=== PATIENT | female | born 1945 | race Caucasian/White ===

== ENCOUNTER 2016-07-02 09:05 | Outpatient (CLI) | payer MEDICARE, OTHER | END 2016-07-02 09:06 | disposition home or self-care (01) | DX: R73.9 Hyperglycemia, unspecified (principal); Z13.1 Encounter for screening for diabetes mellitus; Z13.21 Encounter for screening for nutritional disorder; Z13.220 Encounter for screening for lipoid disorders ==

== ENCOUNTER 2017-06-13 11:55 | Emergency (ER) | payer MEDICARE, OTHER ==
[2017-06-13 12:33] LABS: BASOPHILS % (AUTO) 0.6 %; EOSINOPHILS % (AUTO) 1.2 %; HGB - HEMOGLOBIN 12.2 g/dL (12.0-16.0); LYMPHOCYTES # (AUTO) 0.5 10^3/uL (1.5-3.5); LYMPHOCYTES % (AUTO) 12.6 %; MEAN CORPUSCULAR HEMOGLOBIN 26.6 pg (27.0-31.0); MEAN CORPUSCULAR VOLUME 78.3 fL (81.0-99.0); MEAN PLATELET VOLUME 6.6 fL (7.9-10.8); MONOCYTES # (AUTO) 0.3 10^3/uL (0.0-1.0); MONOCYTES % (AUTO) 6.1 %; NEUTROPHILS # (AUTO) 3.4 10^3/uL (1.5-6.6); NEUTROPHILS % (AUTO) 79.5 %; PLT - PLATELET COUNT 127 10^3/uL (130-450); RED CELL DISTRIBUTION WIDTH 14.5 % (12.0-15.0); WHITE BLOOD COUNT 4.3 x10^3/uL (4.8-10.8)
[2017-06-13 12:47] LABS: BILIRUBIN,TOTAL 0.7 mg/dL (0.2-1.0); CALCIUM 9.7 mg/dL (8.5-10.3); CREATININE 0.5 mg/dL (0.4-1.0); TOTAL PROTEIN 7.5 g/dL (6.7-8.2)
--- NOTE | 2017-06-13 13:08 | XRAY Preliminary Report ---
Exam: XR CHEST 2 VIEW X-RAY IMPRESSION: 1. Congestive heart failure. [facility] SITE ID: [id number]
--- NOTE | 2017-06-13 13:09 | XRAY Report ---
EXAM: CHEST RADIOGRAPHY EXAM DATE: 06/13/2017 12:47 PM. CLINICAL HISTORY: Shortness of breath, chest heaviness. Elevated blood pressure. COMPARISON: 05/18/2015. TECHNIQUE: 2 views. FINDINGS: Lungs/Pleura: Pulmonary vascular congestion. No pneumothorax or pleural effusion. Mediastinum: Cardiomegaly. Other: Lower neck surgical clips. Gallbladder fossa surgical clips. IMPRESSION: 1. Congestive heart failure. [facility] Referring Provider Line: [phone] SITE ID: [id number]
[2017-06-13] MEDS ORDERED: FUROSEMIDE 20 MG/2 ML VIAL IVP STA (13:22)
--- NOTE | 2017-06-13 13:22 | ED Physician Documentation ---
History of Present Illness - Stated complaint Stated Complaint: HIGH BP - Chief complaint Chief Complaint: Cardiac - History obtained from History obtained from: Patient - Additonal information Additional information: The patient is a 72-year-old female who has history of hypertension and aortic stenosis, and who presents complaining of high blood pressure. She has noticed high blood pressure for about 2 weeks, as high as 218/111 today. She reports epigastric "heaviness," but denies chest pain, shortness of breath, nausea or vomiting. She denies history of similar symptoms in the past. 2 weeks ago she stopped taking hydrochlorothiazide, and has been taking only lisinopril for her hypertension. Her reason for stopping hydrochlorothiazide was that she is trying to get off of his many medications as possible. Review of Systems Constitutional: denies: Fever Ears: denies: Tinnitus/ringing Nose: denies: Congestion Throat: denies: Sore throat Cardiac: denies: Chest pain / pressure Respiratory: denies: Dyspnea, Cough GI: reports: Abdominal Pain (Epigastric "heaviness."). 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, Hysterectomy, Other - Present Medications Home Medications: Ambulatory Orders Medication Instructions Recorded Confirmed Aspirin [Adult Low Dose Aspirin EC] 162 mg PO DAILY 04/23/15 05/18/15 Hydrochlorothiazide 25 mg PO DAILY 04/23/15 05/18/15 Lisinopril 40 mg PO DAILY 04/23/15 05/18/15 metFORMIN [Glucophage] 500 mg PO BID 04/23/15 05/18/15 - Allergies Allergies/Adverse Reactions: Allergies Allergy/AdvReac Type Severity Reaction Status Date / Time Sulfa (Sulfonamide Allergy Rash Verified 06/13/17 12:02 Antibiotics) - Social History Does the pt smoke?: No Smoking Status: Never smoker Does the pt drink ETOH?: No Does the pt have substance abuse?: No - Immunizations Immunizations are current?: Yes - POLST Patient has POLST: No PD ED PE NORMAL - Vitals Vital signs reviewed: Yes (hypertensive, at 184/65.) - General General: Alert and oriented X 3, Well developed/nourished - HEENT HEENT: Atraumatic, Moist mucous membranes, Pharynx benign - Neck Neck: No adenopathy, No JVD - Cardiac Cardiac: RRR, Other (3/6 systolic murmur.) - Respiratory Respiratory: No respiratory distress, Clear bilaterally - Abdomen Abdomen: Soft, Non tender - Back Back: No CVA TTP - Derm Derm: No rash - Extremities Extremities: No edema, No calf tenderness / cord - Neuro Neuro: Alert and oriented X 3, No motor deficit, No sensory deficit Results - Vitals Vitals: Oxygen O2 Source Room air - EKG (time done) 12:07 Rate: Rate (enter#) (59) Rhythm: NSR [place]: Normal Intervals: Normal PA QRS: Normal Ischemia: Normal ST segments Computer interpretation: Agree with computer - Labs Labs: Laboratory Tests 06/13/17 06/13/17 06/13/17 12:20 12:20 12:20 WBC 4.3 L RBC 4.60 Hgb 12.2 Hct 36.0 L MCV 78.3 L MCH 26.6 L MCHC 34.0 RDW 14.5 Plt Count 127 L MPV 6.6 L Neut # 3.4 Lymph # 0.5 L [place] # 0.3 Eos # 0.0 Baso # 0.0 Absolute Nucleated RBC 0.00 Nucleated RBC % 0.0 Sodium 137 Potassium 3.6 Chloride 101 Carbon Dioxide 27 Anion Gap 9.0 BUN 20 Creatinine 0.5 Estimated GFR (MDRD) 122 Glucose 123 H Calcium 9.7 Total Bilirubin 0.7 AST 18 ALT 21 Alkaline Phosphatase 50 Troponin I < 0.04 B-Natriuretic Peptide Total Protein 7.5 Albumin 5.0 Globulin 2.5 Albumin/Globulin Ratio 2.0 Lipase 16 L Urine Color Urine Clarity Urine pH Ur Specific [place] Urine Protein Urine Glucose (UA) Urine Ketones Urine Occult Blood Urine Nitrite Urine Bilirubin Urine Urobilinogen Ur Leukocyte Esterase Urine RBC Urine WBC Ur Squamous Epith Cells Urine Bacteria Urine Mucus Ur Microscopic Review Urine Culture Comments 06/13/17 06/13/17 12:20 13:36 WBC RBC Hgb Hct MCV MCH MCHC RDW Plt Count MPV Neut # Lymph # [place] # Eos # Baso # Absolute Nucleated RBC Nucleated RBC % Sodium Potassium Chloride Carbon Dioxide Anion Gap BUN Creatinine Estimated GFR (MDRD) Glucose Calcium Total Bilirubin AST ALT Alkaline Phosphatase Troponin I B-Natriuretic Peptide 317 H Total Protein Albumin Globulin Albumin/Globulin Ratio Lipase Urine Color YELLOW Urine Clarity CLEAR Urine pH 5.5 Ur Specific [place] 1.015 Urine Protein NEGATIVE Urine Glucose (UA) NEGATIVE Urine Ketones NEGATIVE Urine Occult Blood MODERATE H Urine Nitrite NEGATIVE Urine Bilirubin NEGATIVE Urine Urobilinogen 0.2 (NORMAL) Ur Leukocyte Esterase SMALL H Urine RBC 6-10 H Urine WBC 4-5 Ur Squamous Epith Cells MOD Squamous H Urine Bacteria Rare Urine Mucus Few Strands Ur Microscopic Review INDICATED Urine Culture Comments NOT INDICATED - Rads (name of study) 2-view CXR Radiology: Prelim report reviewed, EMP read contemporaneously, See rad report ( Congestive heart failure.) PD MEDICAL DECISION MAKING - ED course Complexity details: reviewed results, re-evaluated patient, considered differential, d/w patient ED course: The patient's presentation is most consistent with mild congestive heart failure. Having stopped her hydrochlorothiazide 2 weeks ago, that is the most likely inciting event. Her presentation does not suggest cardiac angina or pulmonary embolus. CBC is normal, as are BUN/creatinine. Troponin is normal. BNP is mildly elevated at 317. Chest x-ray revealed pulmonary vascular congestion consistent with congestive heart failure. Treatment in the emergency department included administration of Lasix 10 mg IV. The patient subsequently diuresed, and her symptoms totally resolved. I discussed with her the importance of resuming hydrochlorothiazide, to which she agrees. I discussed with her the importance of outpatient follow-up, as well as potentially worrisome signs or symptoms that should prompt reevaluation in the emergency department. Departure - Departure Disposition: 01 Home, Self Care Clinical Impression: Congestive heart failure Qualifiers: Congestive heart failure type: systolic Congestive heart failure chronicity: acute Qualified Code(s): I50.21 - Acute systolic (congestive) heart failure Hypertension Qualifiers: Hypertension type: unspecified secondary hypertension Qualified Code(s): I15.9 - Secondary hypertension, unspecified Aortic stenosis Qualifiers: Cardiac valve disease etiology: etiology unspecified Qualified Code(s): I35.0 - Nonrheumatic aortic (valve) stenosis Condition: Stable Instructions: ED CHF Left Side Follow-Up: Fredy Hagen MD [Primary Care Provider] - Casimiro Webster MD [Provider Admit Priv/Credential] - Comments: The patient's presentation is most consistent with mild congestive heart failure associated with having discontinued hydrochlorothiazide 2 weeks ago. She has a history of aortic stenosis, and I suspect that is an underlying exacerbating cause for her symptoms. Her presentation does not suggest myocardial infarction, and her electrocardiogram reveals no ischemic abnormalities and her troponin is normal. Treatment in the emergency department included administration of Lasix 10 mg IV. At the time of discharge she feels subjectively improved, and her blood pressure is improved. I discussed with her the results of her workup, the importance of continuing therapy with hydrochlorothiazide as well as her other previously prescribed medications, outpatient follow-up, as well as potentially worrisome signs or symptoms that should prompt reevaluation in the emergency department. Discharge Date/Time: 06/13/17 14:51
[2017-06-13 13:43] LABS: BILIRUBIN,URINE NEGATIVE (NEGATIVE); GLUCOSE, URINE (UA) NEGATIVE (NEGATIVE); KETONES,URINE (UA) NEGATIVE (NEGATIVE); LEUKOCYTE ESTERASE, URINE SMALL (NEGATIVE); NITRITE,URINE NEGATIVE (NEGATIVE); OCCULT BLOOD,URINE MODERATE (NEGATIVE); PH,URINE 5.5 PH (5.0-7.5); PROTEIN,URINE NEGATIVE (NEGATIVE); UROBILINOGEN,URINE 0.2 (NORMAL) E.U./dL (NORMAL)
[2017-06-13 13:44] LABS: CLARITY,URINE CLEAR (CLEAR)
[2017-06-13 13:51] LABS: BACTERIA,URINE Rare /HPF (None Seen); MUCUS,URINE Few Strands; SQUAMOUS EPITHELIAL CELL,UR MOD Squamous (<= Few)
[2017-06-13 14:34] VITALS: BP 167/63
== END 2017-06-13 14:51 | disposition home or self-care (01) ==
LOC: ED 11:55
DX: I11.0 Hypertensive heart disease with heart failure (principal); I50.21 Acute systolic (congestive) heart failure; I35.0 Nonrheumatic aortic (valve) stenosis; E11.9 Type 2 diabetes mellitus without complications; Z79.84 Long term (current) use of oral hypoglycemic drugs; Z79.82 Long term (current) use of aspirin
CPT/HCPCS: 36415; 71046; 80053; 81001; 81003; 83690; 83880; 84484; 85025; 87086; 93005; 96374; 99284

== ENCOUNTER 2018-06-27 08:33 | Outpatient (CLI) | payer MEDICARE, OTHER ==
--- NOTE | 2018-06-29 12:27 | Mammography Report ---
Reason: ENCOUNTER FOR SCREENING MAMMOGRAM FOR MALIGNANT NE Procedure Date: 06/27/2018 Accession Number: [id number] / [id number] Procedure: KANNAN - Screening Mammo w/Andriy CPT Code: FULL RESULT: EXAM: Screening Mammo w/Andriy DATE: 06/27/2018 9:06 AM CLINICAL HISTORY: Screening encounter. History of early menses. TECHNIQUE: (B) - Bilateral CC, laterally exaggerated CC, MLO views were obtained. COMPARISON: 06/01/2014 through 04/09/2013. PARENCHYMAL PATTERN: (D) - The breast(s) demonstrate(s) heterogeneously dense fibroglandular parenchyma. FINDINGS: There are coarse typically benign calcifications. There are no suspicious masses, calcifications, or areas of distortion. IMPRESSION: Benign findings. BI-RADS category 2. RECOMMENDATION: (ANNUAL) - Recommend routine annual screening mammography. BI-RADS CATEGORY: (2) - Benign Findings. STANDARD QUALIFYING STATEMENTS: 1. This examination was not reviewed with the aid of Computer-Aided Detection (CAD). 2. A negative or benign imaging report should not preclude biopsy if clinically suspicious findings are present. 3. Dense breasts may obscure an underlying neoplasm. 4. This examination was reviewed with the aid of 3D breast imaging (tomosynthesis).
== END 2018-06-27 08:34 | disposition home or self-care (01) ==
LOC: DI 08:33
PROVIDERS: ATTEND Family Medicine
DX: Z12.31 Encounter for screening mammogram for malignant neoplasm of breast (principal)
CPT/HCPCS: 77063; 77067

== ENCOUNTER 2018-07-12 08:57 | Outpatient (CLI) | payer MEDICARE, OTHER | END 2018-07-12 08:58 | disposition home or self-care (01) | LOC: DI 08:57 | PROVIDERS: ATTEND Internal Medicine Cardiovascular Disease | DX: I35.0 Nonrheumatic aortic (valve) stenosis (principal); I27.20 Pulmonary hypertension, unspecified; I51.9 Heart disease, unspecified; I51.7 Cardiomegaly | CPT/HCPCS: 93306 ==

== ENCOUNTER 2019-03-10 11:56 | Emergency (ER) | payer MEDICARE, OTHER ==
[2019-03-10] MEDS ORDERED: PROCAINAMIDE 1,000 MG in SODIUM CHLORIDE 0.9% 240 ML IV STA (12:26)
[2019-03-10] MEDS ORDERED: METOPROLOL 5 MG/5 ML VIAL IVP STA (12:26)
--- NOTE | 2019-03-10 12:28 | ED Physician Documentation ---
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 No history of coronary disease or atrial fibrillation. She denies increased pedal edema although on examination she does have some, and although she says she had not noticed that her says it is atypical.) Review of Systems Ten Systems: 10 systems reviewed and negative Constitutional: denies: Fever, Chills Throat: denies: Sore throat Cardiac: reports: Chest pain / pressure, Palpitations. denies: Pedal edema, Calf pain Respiratory: reports: Dyspnea. 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, Hysterectomy, Other - Present Medications Home Medications: Ambulatory Orders Medication Instructions Recorded Confirmed Aspirin [Adult Low Dose Aspirin EC] 162 mg PO DAILY 04/23/15 05/18/15 Hydrochlorothiazide 25 mg PO DAILY 04/23/15 05/18/15 lisinopriL [Lisinopril] 40 mg PO DAILY 04/23/15 05/18/15 metFORMIN [Glucophage] 500 mg PO BID 04/23/15 05/18/15 predniSONE [Prednisone] 100 mg PO DAILY PRN 02/22/19 02/22/19 - Allergies Allergies/Adverse Reactions: Allergies Allergy/AdvReac Type Severity Reaction Status Date / Time Sulfa (Sulfonamide Allergy Rash Verified 06/13/17 12:02 Antibiotics) - Social History Does the pt smoke?: No Smoking Status: Never smoker Does the pt drink ETOH?: No Does the pt have substance abuse?: No - Immunizations Immunizations are current?: Yes - POLST Patient has POLST: No PD ED PE NORMAL - Vitals Vital signs reviewed: Yes - General General: Alert and oriented X 3, No acute distress - HEENT HEENT: PERRL, EOMI - Neck Neck: Supple, no meningeal sign, No bony TTP - Cardiac Cardiac: Other (Rapid and irregular, she says she has a history of aortic stenosis but with the rapidity I do not appreciate a murmur) - Respiratory Respiratory: Other (Mildly diminished at the bases) - Abdomen Abdomen: Non tender - Back Back: No CVA TTP, No spinal TTP - Derm Derm: Normal color, Warm and dry - Extremities Extremities: No calf tenderness / cord, Other (1+ symmetric pitting pedal edema) - Neuro Neuro: Alert and oriented X 3, Normal speech Results - Vitals Vitals: Vital Signs - 24 hr 03/10/19 03/10/19 03/10/19 12:01 12:49 13:00 Temperature 36.8 C Heart Rate 127 H 126 H 118 H Respiratory 18 23 19 Rate Blood Pressure 150/105 H 149/96 H 160/133 H O2 Saturation 100 97 97 03/10/19 03/10/19 03/10/19 13:14 13:30 14:00 Temperature Heart Rate 121 H 92 104 H Respiratory 22 18 21 Rate Blood Pressure 121/81 H 119/96 H 132/104 H O2 Saturation 97 95 96 03/10/19 03/10/19 03/10/19 14:30 15:00 15:43 Temperature Heart Rate 89 104 H 118 H Respiratory 20 17 18 Rate Blood Pressure 92/74 120/88 H 165/118 H O2 Saturation 97 97 98 03/10/19 03/10/19 15:47 15:50 Temperature Heart Rate 52 L 57 L Respiratory 18 22 Rate Blood Pressure 77/63 L 108/64 O2 Saturation 96 97 Oxygen O2 Source Nasal cannula - EKG (time done) 1212 Rate: Rate (enter#) (136) Rhythm: Atrial fibrillation [place]: Normal Ischemia: Non specific changes. No: ST elevation c/w ischemia, ST depression Computer interpretation: Agree with computer 1555 Rate: Rate (enter#) (56) Rhythm: NSR [place]: Normal Intervals: Prolonged [place] Ischemia: Non specific changes (prob d/t proparacaine). No: ST elevation c/w ischemia, ST depression Computer interpretation: Agree with computer - Labs Labs: Laboratory Tests 03/10/19 03/10/19 03/10/19 13:15 13:15 13:15 WBC 6.7 RBC 3.57 L Hgb 10.3 L Hct 32.3 L MCV 90.5 MCH 28.9 MCHC 31.9 L RDW 18.1 H Plt Count 319 MPV 10.8 Neut # (Auto) 4.4 Lymph # (Auto) 1.2 L [place] # (Auto) 0.8 Eos # (Auto) 0.1 Baso # (Auto) 0.1 Absolute Nucleated RBC 0.02 Nucleated RBC % 0.3 Sodium 135 Potassium 3.9 Chloride 99 L Carbon Dioxide 25 Anion Gap 11.0 BUN 18 Creatinine 0.7 Estimated GFR (MDRD) 82 L Glucose 220 H Calcium 9.9 Total Bilirubin 0.3 AST 29 ALT 25 Alkaline Phosphatase 76 Troponin I High Sens B-Natriuretic Peptide 687 H Total Protein 6.7 Albumin 3.9 Globulin 2.8 Albumin/Globulin Ratio 1.4 Lipase 34 03/10/19 03/10/19 13:15 15:18 WBC RBC Hgb Hct MCV MCH MCHC RDW Plt Count MPV Neut # (Auto) Lymph # (Auto) [place] # (Auto) Eos # (Auto) Baso # (Auto) Absolute Nucleated RBC Nucleated RBC % Sodium Potassium Chloride Carbon Dioxide Anion Gap BUN Creatinine Estimated GFR (MDRD) Glucose Calcium Total Bilirubin AST ALT Alkaline Phosphatase Troponin I High Sens 57.7 H* 57.8 H* B-Natriuretic Peptide Total Protein Albumin Globulin Albumin/Globulin Ratio Lipase - Rads (name of study) 1v chest Radiology: EMP read contemporaneously (Unchanged central bronchial wall thickening, interstitial prominence, mild pulmonary edema not excluded, right midlung nodular density, stable cardiomegaly) Procedures - Procedural sedation Sedation prep: Informed consent, AHA 3 - severe disease Sedation medications: propofol (70mg IVP x1) Patient status during sedation: Responds to tactile, Vitals remained stable, Maintained airway, Recovered uneventfully Sedation recovery: Recovered uneventfully Time in sedation (Minutes): 15 - Cardioversion 1 Time of attempt: 15:50 Indication: Other (symptomatic afib) Risks, benefits, alternatives explained to: Pt Prep: IV, O2, monitoring tech, Pulse ox, Airway equip CS via: Pads, AP approach Sync: 100j Post cardioversion rhythm: NSR Complications: No: Contact burn, Apnea, Hypotension Performed by: ED MD JURADO MEDICAL DECISION MAKING - ED course Complexity details: reviewed old records (Echocardiogram from earlier this year in June reviewed, EF was 60%, moderate diastolic disjunction, left atrium dilation, mild aortic stenosis, moderate pulmonary hypertension.) ED course: 73-year-old woman presents with symptomatic and new atrial fibrillation. After divided doses of IV beta-fawad and diltiazem she was rate controlled, and she got a procainamide drip which did not result in rhythm control. After discussion she wanted to go ahead with electrical cardioversion which was successful on the first shock. Mildly elevated troponin but no delta change after 2 hours. Departure - Departure Disposition: 01 Home, Self Care Clinical Impression: Atrial fibrillation with RVR Condition: Good Record reviewed to determine appropriate education?: Yes Instructions: Atrial Fibrillation Dc Comments: You do have a small right mid lung nodule, no urgency to it but your doctor should order a noncontrast chest CT for better evaluation. Do not drive today. Take it easy the rest of the day. 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 Return if worse. Continue current medications.
--- NOTE | 2019-03-10 12:32 | XRAY Report ---
Reason: chest pressure Procedure Date: 03/10/2019 Accession Number: [id number] / [id number] Procedure: XR - Chest 1 View X-Ray CPT Code: 70925 Final Report FULL RESULT: EXAM: CHEST RADIOGRAPHY EXAM DATE: 03/10/2019 12:22 PM. CLINICAL HISTORY: Chest pressure. COMPARISON: CHEST 2 VIEW 06/13/2017 12:45 PM. TECHNIQUE: 1 view. FINDINGS: Lungs/Pleura: Lung volumes are low, decreased compared to prior. Unchanged central bronchial wall thickening seen bilaterally with associated interstitial prominence. No new focal consolidation. Indeterminate 5 mm nodular density projects over the right midlung. No pneumothorax. Mediastinum: Stable heart size and mediastinum. Other: Chest port catheter terminates in the mid SVC. IMPRESSION: 1. Unchanged central bronchial wall thickening which could reflect reactive airways or bronchitis. 2. Interstitial prominence could reflect vascular congestion or possibly interstitial pulmonary edema. No focal consolidation. 3. Indeterminate nodular density projecting over the right midlung is of unclear etiology. Nonemergent chest CT could be obtained for evaluation. 4. Stable cardiomegaly. [facility]
[2019-03-10] MEDS ORDERED: diltiaZEM INJ 5 MG/ML VIAL IVP STA ×2 (13:14→14:15)
[2019-03-10 13:34] LABS: BASOPHILS # (AUTO) 0.1 10^3/uL (0.0-0.1); BASOPHILS % (AUTO) 1.4 %; EOSINOPHILS # (AUTO) 0.1 10^3/uL (0.0-0.7); EOSINOPHILS % (AUTO) 1.8 %; HGB - HEMOGLOBIN 10.3 g/dL (12.0-16.0); LYMPHOCYTES # (AUTO) 1.2 10^3/uL (1.5-3.5); LYMPHOCYTES % (AUTO) 17.4 %; MEAN CORPUSCULAR HEMOGLOBIN 28.9 pg (27.0-31.0); MEAN CORPUSCULAR HGB CONC 31.9 g/dL (32.0-36.0); MEAN CORPUSCULAR VOLUME 90.5 fL (81.0-99.0); MEAN PLATELET VOLUME 10.8 fL (7.9-10.8); MONOCYTES # (AUTO) 0.8 10^3/uL (0.0-1.0); MONOCYTES % (AUTO) 11.3 %; NEUTROPHILS # (AUTO) 4.4 10^3/uL (1.5-6.6); NEUTROPHILS % (AUTO) 65.4 %; PLT - PLATELET COUNT 319 10^3/uL (130-450); RED BLOOD COUNT 3.57 10^6/uL (4.20-5.40); RED CELL DISTRIBUTION WIDTH 18.1 % (12.0-15.0); WHITE BLOOD COUNT 6.7 x10^3/uL (4.8-10.8)
[2019-03-10 13:54] LABS: ALBUMIN 3.9 g/dL (3.2-5.5); ALBUMIN/GLOBULIN RATIO 1.4 (1.0-2.2); BILIRUBIN,TOTAL 0.3 mg/dL (0.2-1.0); CALCIUM 9.9 mg/dL (8.5-10.3); CREATININE 0.7 mg/dL (0.4-1.0); TOTAL PROTEIN 6.7 g/dL (6.7-8.2)
[2019-03-10] MEDS ORDERED: PROPOFOL 200 MG/20 ML VIAL IVP STA (15:24)
[2019-03-10 16:36] VITALS: BP 116/60
== END 2019-03-10 16:36 | disposition home or self-care (01) ==
LOC: ED 11:56
DX: I48.91 Unspecified atrial fibrillation (principal); I35.0 Nonrheumatic aortic (valve) stenosis; R91.1 Solitary pulmonary nodule; C85.90 Non-Hodgkin lymphoma, unspecified, unspecified site; Z86.718 Personal history of other venous thrombosis and embolism; Z79.01 Long term (current) use of anticoagulants; Z79.82 Long term (current) use of aspirin; I10 Essential (primary) hypertension; E11.9 Type 2 diabetes mellitus without complications; Z79.84 Long term (current) use of oral hypoglycemic drugs
CPT/HCPCS: 36415; 71045; 80053; 83690; 83880; 84484; 85025; 92960; 93005; 96365; 96366; 96375; 96376; 99152; 99284; 99285; J2690; 94770

== ENCOUNTER 2019-03-12 11:00 | Emergency (ER) | payer MEDICARE, OTHER ==
--- NOTE | 2019-03-12 11:49 | ED Physician Documentation ---
History of Present Illness - Stated complaint Stated Complaint: SOA - Chief complaint Chief Complaint: Cardiac - Additonal information Additional information: This is a 73-year-old female with a history of non-Hodgkin's lymphoma, reportedly in remission, on chemotherapy, mild aortic stenosis, recent atrial fibrillation, who presents with an episode of shortness of breath last night and some chest heaviness today. Patient states that she was in the emergency department recently and diagnosed with a first episode of atrial fibrillation, she was cardioverted and sent home. She reports she had an elevated troponin which was stable on a repeat level. Last night she had an episode where she felt short of breath, and this morning she had chest heaviness. Her breathing now feels fine and she has not had any fever. She has an intermittent cough, but no change from baseline. No abdominal pain over her baseline mild discomfort from semi-recent abdominal surgery. She does have a history of blood clots, and she is on Eliquis for this. She has been taking this faithfully. 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, Hysterectomy, Other - Present Medications Home Medications: Ambulatory Orders Medication Instructions Recorded Confirmed metFORMIN [Glucophage] 500 mg PO BID 04/23/15 05/18/15 predniSONE [Prednisone] 100 mg PO DAILY PRN 02/22/19 02/22/19 Apixaban [Eliquis] 5 mg PO BID 03/12/19 03/12/19 Metoprolol Tartrate 50 mg PO DAILY 03/12/19 03/12/19 - Allergies Allergies/Adverse Reactions: Allergies Allergy/AdvReac Type Severity Reaction Status Date / Time Sulfa (Sulfonamide Allergy Rash Verified 03/12/19 11:18 Antibiotics) - Social History Does the pt smoke?: No Smoking Status: Never smoker Does the pt drink ETOH?: No Does the pt have substance abuse?: No - Immunizations Immunizations are current?: Yes - POLST Patient has POLST: No PD ED PE NORMAL - Vitals Vital signs reviewed: Yes - General General: Alert and oriented X 3, No acute distress - HEENT HEENT: PERRL - Neck Neck: Supple, no meningeal sign - Cardiac Cardiac: RRR, Other (2 out of 6 systolic ejection murmur) - Respiratory Respiratory: No respiratory distress, Clear bilaterally - Abdomen Abdomen: Soft, Non tender, Non distended, Other (Well-healed surgical incisions) - Derm Derm: Warm and dry - Extremities Extremities: No deformity, Other (Trace pitting edema in the bilateral lower extremities) - Neuro Neuro: Alert and oriented X 3 - Psych Psych: Normal mood, Normal affect Results - Vitals Vitals: Vital Signs - 24 hr 03/12/19 17:14 Temperature 37 C Heart Rate 93 Respiratory 20 Rate Blood Pressure 167/77 H O2 Saturation 95 Oxygen O2 Source Room air - EKG (time done) 11;14 Other comments: Other comments (Rate 85, rhythm sinus, there is no ST segment elevation or depression, no T wave inversions in V3. Intervals within normal limits.) 14:28 Other comments: Other comments (Rate 75, rhythm sinus, there is no ST segment elevation or depression, there to inversions in V3, intervals within normal limits. No significant change from prior) - Labs Labs: Laboratory Tests 03/12/19 03/12/19 03/12/19 11:45 11:45 11:45 WBC 7.1 RBC 3.56 L Hgb 10.5 L Hct 32.7 L MCV 91.9 MCH 29.5 MCHC 32.1 RDW 18.2 H Plt Count 495 H MPV 9.8 Neut # (Auto) 4.4 Lymph # (Auto) 1.3 L [place] # (Auto) 1.0 Eos # (Auto) 0.2 Baso # (Auto) 0.1 Absolute Nucleated RBC 0.00 Nucleated RBC % 0.0 PT 13.6 H INR 1.2 Sodium 135 Potassium 3.6 Chloride 99 L Carbon Dioxide 27 Anion Gap 9.0 BUN 13 Creatinine 0.7 Estimated GFR (MDRD) 82 L Glucose 240 H Calcium 9.5 Total Bilirubin 0.3 AST 23 ALT 23 Alkaline Phosphatase 80 Troponin I High Sens B-Natriuretic Peptide Total Protein 6.6 L Albumin 4.0 Globulin 2.6 Albumin/Globulin Ratio 1.5 Lipase 34 03/12/19 03/12/19 03/12/19 11:45 11:45 13:51 WBC RBC Hgb Hct MCV MCH MCHC RDW Plt Count MPV Neut # (Auto) Lymph # (Auto) [place] # (Auto) Eos # (Auto) Baso # (Auto) Absolute Nucleated RBC Nucleated RBC % PT INR Sodium Potassium Chloride Carbon Dioxide Anion Gap BUN Creatinine Estimated GFR (MDRD) Glucose Calcium Total Bilirubin AST ALT Alkaline Phosphatase Troponin I High Sens 75.1 H* 90.5 H* B-Natriuretic Peptide 1191 H Total Protein Albumin Globulin Albumin/Globulin Ratio Lipase - Rads (name of study) CXR Radiology: Other (Cardiomegaly with no other acute pulmonary abnormality) PD MEDICAL DECISION MAKING - ED course ED course: Patient presents with chest heaviness and an episode of shortness of breath last night. On examination she is well-appearing with clear lungs, x-ray shows no acute cardiopulmonary abnormality, she does have cardiomegaly. Her EKGs show T wave inversion in V3, no ST segment changes. Her CBC shows a stable anemia, no leukocytosis, she does not have infectious symptoms on exam. Her HS troponin is elevated at 75 which is increased from 57 on the 25th, and additionally a 2- hour delta troponin comes back further elevated at 98.5. Her BNP is also up at 1200, just 2 days ago it was 687. She continues to have some mild chest hea viness but no chest pain. She is well-appearing on reexamination. She appears to have worsening HF, though ACS is also possible given her symptoms and uptrending troponin. She techinically has an NSTEMI, I did not start heparin on her since she is on Eliquis and has been taking this. Pulmonary embolism was considered, however patient has no signs of DVT, and she does not have any pleuritic chest pain, oxygen saturation is normal, and she is on eliquis. I think PE is much less likely especially given her description of the pain. Given her uptrending troponins and the fact that we do not have cardiology or echocardiogram available at our facility, She will be transferred to [facility]. Dr. Perez accepted. Pt is in agreement with the plan. She is well appearing and asymptomatic at the time of transfer. Departure - Departure Disposition: 02 Transfer Acute Care Hosp Clinical Impression: Elevated troponin Heart failure Qualifiers: Heart failure type: unspecified Heart failure chronicity: unspecified Qualified Code(s): I50.9 - Heart failure, unspecified Condition: Good Discharge Date/Time: 03/12/19 17:45
[2019-03-12 12:20] LABS: BASOPHILS # (AUTO) 0.1 10^3/uL (0.0-0.1); BASOPHILS % (AUTO) 1.5 %; EOSINOPHILS # (AUTO) 0.2 10^3/uL (0.0-0.7); EOSINOPHILS % (AUTO) 2.1 %; HGB - HEMOGLOBIN 10.5 g/dL (12.0-16.0); LYMPHOCYTES # (AUTO) 1.3 10^3/uL (1.5-3.5); LYMPHOCYTES % (AUTO) 18.2 %; MEAN CORPUSCULAR HEMOGLOBIN 29.5 pg (27.0-31.0); MEAN CORPUSCULAR HGB CONC 32.1 g/dL (32.0-36.0); MEAN CORPUSCULAR VOLUME 91.9 fL (81.0-99.0); MEAN PLATELET VOLUME 9.8 fL (7.9-10.8); MONOCYTES % (AUTO) 14.3 %; NEUTROPHILS # (AUTO) 4.4 10^3/uL (1.5-6.6); NEUTROPHILS % (AUTO) 61.8 %; PLT - PLATELET COUNT 495 10^3/uL (130-450); RED BLOOD COUNT 3.56 10^6/uL (4.20-5.40); RED CELL DISTRIBUTION WIDTH 18.2 % (12.0-15.0); WHITE BLOOD COUNT 7.1 x10^3/uL (4.8-10.8)
[2019-03-12 12:28] LABS: INR 1.2 (0.8-1.2); PT - PROTHROMBIN TIME 13.6 secs (9.9-12.6)
[2019-03-12 12:30] LABS: ALBUMIN/GLOBULIN RATIO 1.5 (1.0-2.2); BILIRUBIN,TOTAL 0.3 mg/dL (0.2-1.0); CALCIUM 9.5 mg/dL (8.5-10.3); CREATININE 0.7 mg/dL (0.4-1.0); TOTAL PROTEIN 6.6 g/dL (6.7-8.2)
--- NOTE | 2019-03-12 12:53 | XRAY Report ---
Reason: Chest heaviness, SOB Procedure Date: 03/12/2019 Accession Number: [id number] / [id number] Procedure: XR - Chest 2 View X-Ray CPT Code: 86993 Final Report FULL RESULT: EXAM: CHEST RADIOGRAPHY EXAM DATE: 03/12/2019 12:46 PM. CLINICAL HISTORY: Chest heaviness, shortness of breath. COMPARISON: CHEST 1 VIEW 03/10/2019 12:06 PM. TECHNIQUE: 2 views. FINDINGS: Lungs/Pleura: No focal opacities evident. No pleural effusion. No pneumothorax. Normal volumes. Mediastinum: Stable mild cardiomegaly when accounting for differences in technique. Other: Left-sided central venous port with tip in the SVC appears unchanged. Surgical clips are seen in the left neck. IMPRESSION: Redemonstration of cardiomegaly with no superimposed acute cardiopulmonary abnormality. RADIA
[2019-03-12 17:16] VITALS: BP 167/77
== END 2019-03-12 17:45 | disposition short-term general hospital (02) ==
LOC: ED 11:00
DX: R79.89 Other specified abnormal findings of blood chemistry (principal); I11.0 Hypertensive heart disease with heart failure; I21.4 Non-ST elevation (NSTEMI) myocardial infarction; E11.9 Type 2 diabetes mellitus without complications; Z79.84 Long term (current) use of oral hypoglycemic drugs
CPT/HCPCS: 36415; 71046; 80053; 83690; 83880; 84484; 85025; 85610; 93005; 99284; 99285

== ENCOUNTER 2019-03-12 17:43 | Outpatient (CLI) | payer MEDICARE, OTHER | END 2019-03-12 17:44 | disposition short-term general hospital (02) | LOC: EMS 17:43 | PROVIDERS: ATTEND Surgery | DX: R79.89 Other specified abnormal findings of blood chemistry (principal); I50.9 Heart failure, unspecified; R51 Headache; R06.02 Shortness of breath; R07.9 Chest pain, unspecified | CPT/HCPCS: A0425; A0428 ==

== ENCOUNTER 2019-03-31 09:11 | Outpatient (CLI) | payer MEDICARE, OTHER | END 2019-03-31 09:12 | disposition home or self-care (01) | LOC: DI 09:11 | PROVIDERS: ATTEND Internal Medicine Cardiovascular Disease | DX: I42.9 Cardiomyopathy, unspecified (principal); I48.0 Paroxysmal atrial fibrillation; I35.0 Nonrheumatic aortic (valve) stenosis; I51.7 Cardiomegaly | CPT/HCPCS: 93306 ==

== ENCOUNTER 2019-04-20 13:14 | Outpatient (CLI) | payer MEDICARE, OTHER ==
--- NOTE | 2019-04-21 02:17 | XRAY Report ---
Reason: M79.89 OTHER SOFT TISSUE DISORDERS Procedure Date: 04/20/2019 Accession Number: [id number] / [id number] Procedure: XRS - Foot 2 View RT CPT Code: Final Report FULL RESULT: EXAM: RIGHT FOOT RADIOGRAPHY EXAM DATE: 04/20/2019 01:44 PM. CLINICAL HISTORY: M79. 89 OTHER SOFT TISSUE DISORDERS. Right foot pain and swelling COMPARISON: None. TECHNIQUE: 2 views. FINDINGS: Bones: Normal. No fractures or bone lesions. Joints: Mild osteoarthritis of the first metatarsophalangeal joint and interphalangeal joints. Soft Tissues: Soft tissue swelling. No radiopaque foreign body. IMPRESSION: Soft tissue swelling, but no evidence of fracture or radiopaque foreign body. Mild degenerative changes. RADIA
== END 2019-04-20 13:15 | disposition home or self-care (01) ==
LOC: DI.S 13:14
PROVIDERS: ATTEND Nurse Practitioner Family
DX: M79.89 Other specified soft tissue disorders (principal); M19.071 Primary osteoarthritis, right ankle and foot

== ENCOUNTER 2019-05-06 14:47 | Emergency (ER) | payer MEDICARE, OTHER ==
[2019-05-06] MEDS ORDERED: diltiaZEM INJ 5 MG/ML VIAL IVP STA (15:08)
--- NOTE | 2019-05-06 15:09 | ED Physician Documentation ---
History of Present Illness - Stated complaint Stated Complaint: AFIB - Chief complaint Chief Complaint: Cardiac - History obtained from History obtained from: Patient - History of Present Illness Timing: Today Pain level max: 0 Pain level now: 0 - Additonal information Additional information: 73-year-old female with a history of paroxysmal atrial fibrillation and heart failure. Her last EF was approximately 50%. [place] [facility] [place] and noted that her heart rate was above 100. They sent her here to have her heart rate better controlled. She is asymptomatic here. No shortness of breath. No chest pain. No nausea. No vomiting. No abdominal pain. Nothing makes it better or worse. 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 : None HEENT: None Psych: None Musculoskeletal: None Derm: None - Past Surgical History Past Surgical History: Yes General: 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, Hysterectomy, Other - Present Medications Home Medications: Ambulatory Orders Medication Instructions Recorded Confirmed metFORMIN [Glucophage] 500 mg PO DAILY 04/23/15 05/05/19 predniSONE [Prednisone] 100 mg PO DAILY PRN 02/22/19 05/05/19 Apixaban [Eliquis] 5 mg PO BID 03/12/19 05/05/19 Metoprolol Tartrate 50 mg PO DAILY 03/12/19 05/05/19 Furosemide [Lasix] 20 mg PO DAILY 03/16/19 05/05/19 cephALEXin [Cephalexin] 500 mg PO QID 04/26/19 05/05/19 - Allergies Allergies/Adverse Reactions: Allergies Allergy/AdvReac Type Severity Reaction Status Date / Time Sulfa (Sulfonamide Allergy Rash Verified 05/06/19 15:05 Antibiotics) - Social History Does the pt smoke?: No Smoking Status: Never smoker Does the pt drink ETOH?: No Does the pt have substance abuse?: No - Immunizations Immunizations are current?: Yes - POLST Patient has POLST: No PD ED PE NORMAL - Vitals Vital signs reviewed: Yes - General General: Alert and oriented X 3, No acute distress, Well developed/nourished - HEENT HEENT: PERRL, Moist mucous membranes - Neck Neck: Supple, no meningeal sign - Cardiac Cardiac: Strong equal pulses, Other (Irregular, tachycardic) - Respiratory Respiratory: No respiratory distress, Clear bilaterally - Abdomen Abdomen: Soft, Non tender, Non distended - Derm Derm: Warm and dry - Extremities Extremities: No edema - Neuro Neuro: Alert and oriented X 3 - Psych Psych: Normal mood, Normal affect Results - Vitals Vitals: Vital Signs - 24 hr 05/06/19 05/06/19 05/06/19 15:00 15:15 15:20 Temperature 36.6 C Heart Rate 125 H 125 H 127 H Respiratory 16 18 20 Rate Blood Pressure 143/106 H 142/112 H 135/103 H O2 Saturation 98 97 97 05/06/19 15:25 Temperature Heart Rate 85 Respiratory 18 Rate Blood Pressure 117/71 O2 Saturation 96 Oxygen O2 Source Room air - EKG (time done) 1503 Rate: Rate (enter#) (128) Rhythm: Atrial fibrillation (RVR) Webb: Normal QRS: Normal Ischemia: Normal ST segments PD MEDICAL DECISION MAKING - ED course Complexity details: considered differential, d/w patient, d/w family ED course: Patient with atrial fibrillation with rapid ventricular response. Administered diltiazem 20 mg IV. Heart rate controlled. She is going to go back [place] [facility] [place]. She will return if she worsens. Patient counseled regarding signs and symptoms for which I believe and urgent re-evaluation would be necessary. Patient with good understanding of and agreement to plan and is comfortable going home at this time This document was made in part using voice recognition software. While efforts are made to proofread this document, sound alike and grammatical errors may occur. Departure - Departure Disposition: 01 Home, Self Care Clinical Impression: Atrial fibrillation with rapid ventricular response Condition: Good Instructions: ED Afib Follow-Up: Fredy Hagen MD [Primary Care Provider] - Comments: Follow-up with your doctor for further care. Return if you worsen.
[2019-05-06 15:56] VITALS: BP 131/75
[2019-05-06] MEDS ORDERED: SODIUM CHLORIDE 0.9% 250 ML IV ONE (16:07)
== END 2019-05-06 15:40 | disposition home or self-care (01) ==
LOC: ED 14:47
DX: I48.91 Unspecified atrial fibrillation (principal); I10 Essential (primary) hypertension; E11.9 Type 2 diabetes mellitus without complications; Z79.01 Long term (current) use of anticoagulants; Z79.84 Long term (current) use of oral hypoglycemic drugs
CPT/HCPCS: 93005; 96374; 99284

== ENCOUNTER 2019-05-08 06:46 | Emergency (ER) | payer MEDICARE, OTHER ==
[2019-05-08] MEDS ORDERED: diltiaZEM INJ 5 MG/ML VIAL IVP STA ×2 (07:30→12:03)
[2019-05-08] MEDS ORDERED: FUROSEMIDE 40 MG/4 ML VIAL IVP STA (07:30)
--- NOTE | 2019-05-08 07:33 | ED Physician Documentation ---
PD HPI CHEST PAIN - Stated complaint Stated Complaint: SOA/SENT BY - Chief complaint Chief Complaint: Cardiac - History obtained from History obtained from: Patient, Family - History of Present Illness Timing - onset: Yesterday Timing - onset during: Rest Timing - duration: Hours Timing - details: Gradual onset, Still present Quality: Pressure, Indigestion Location: Substernal, Left chest Radiation: Neck Improved by: Rest Worsened by: Exertion Associated symptoms: Shortness of air Similar symptoms before: Diagnosis (CHF afib) Recently seen: Other - Additional information Additional information: 73-year-old female with a history of atrial fibrillation with rapid ventricular response who is undergoing treatment for non-Hodgkin's B-cell lymphoma has developed shortness of breath and rapid heart rate with some chest pressure. She has had this previously she did have some relief with the use of diltiazem here in the emergency department 2 days ago. She has had her last round of chemo yesterday. She is in remission. She does have a prior history of congestive heart failure associated with atrial fibrillation with a hospitalization in February of last year. She has received doxyrubicin. She is previously had cardioversion and she is on Eliquis. She reports a 6lb weight gain 2 days ago. Review of Systems Constitutional: denies: Fever Eyes: denies: Decreased vision Ears: denies: Ear pain Nose: denies: Rhinorrhea / runny nose, Congestion Throat: denies: Sore throat Cardiac: reports: Chest pain / pressure, Palpitations. denies: Pedal edema, Calf pain Respiratory: reports: Dyspnea. 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, Hysterectomy, Other - Present Medications Home Medications: Ambulatory Orders Medication Instructions Recorded Confirmed metFORMIN [Glucophage] 500 mg PO DAILY 04/23/15 05/05/19 predniSONE [Prednisone] 100 mg PO DAILY PRN 02/22/19 05/05/19 Apixaban [Eliquis] 5 mg PO BID 03/12/19 05/05/19 Metoprolol Tartrate 50 mg PO DAILY 03/12/19 05/05/19 Furosemide [Lasix] 20 mg PO DAILY 03/16/19 05/05/19 cephALEXin [Cephalexin] 500 mg PO QID 04/26/19 05/05/19 Furosemide [Lasix] 40 mg PO DAILY #20 tablet 05/08/19 Potassium Chloride 10 meq PO DAILY #20 tablet.er 05/08/19 - Allergies Allergies/Adverse Reactions: Allergies Allergy/AdvReac Type Severity Reaction Status Date / Time Sulfa (Sulfonamide Allergy Rash Verified 05/08/19 07:14 Antibiotics) - Social History Does the pt smoke?: No Smoking Status: Never smoker Does the pt drink ETOH?: No Does the pt have substance abuse?: No - Immunizations Immunizations are current?: Yes - POLST Patient has POLST: No PD ED PE NORMAL - Vitals Vital signs reviewed: Yes (tachy and hypertensive ) - General General: Alert and oriented X 3, No acute distress, Well developed/nourished - HEENT HEENT: Atraumatic, PERRL, EOMI - Neck Neck: Supple, no meningeal sign, No bony TTP - Cardiac Cardiac: Other (Tachycardic with irregularly irregular rate and rhythm without murmur) - Respiratory Respiratory: No respiratory distress, Other (Diminished breath sounds in the bases) - Abdomen Abdomen: Soft, Non tender - Back Back: No CVA TTP, No spinal TTP - Derm Derm: Normal color, Warm and dry, No rash - Extremities Extremities: No deformity, No edema - Neuro Neuro: Alert and oriented X 3, 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 2-12 intact, No motor deficit, No sensory deficit, Normal speech Eye Opening: Spontaneous Motor: Obeys Commands Verbal: Oriented GCS Score: 15 - Psych Psych: Normal mood, Normal affect Results - Vitals Vitals: Vital Signs - 24 hr 05/08/19 05/08/19 05/08/19 06:54 08:17 08:22 Temperature 36.6 C Heart Rate 139 H 135 H 102 H Respiratory 16 16 Rate Blood Pressure 154/110 H 136/92 H 128/80 O2 Saturation 97 96 05/08/19 05/08/19 05/08/19 08:25 08:30 08:37 Temperature Heart Rate 81 97 97 Respiratory Rate Blood Pressure 123/83 H 139/93 H 145/104 H O2 Saturation 05/08/19 12:57 Temperature Heart Rate 86 Respiratory 19 Rate Blood Pressure 119/70 O2 Saturation 96 Oxygen O2 Source Room air - EKG (time done) 0659 Rate: Rate (enter#) (137) Rhythm: Atrial fibrillation Compare to prior EKG: Unchanged from prior EKG (SPT 05-06-2019 no significant change) Computer interpretation: Agree with computer - Labs Labs: Laboratory Tests 05/08/19 05/08/19 05/08/19 09:40 09:40 09:40 WBC 9.9 RBC 4.04 L Hgb 11.9 L Hct 36.9 L MCV 91.3 MCH 29.5 MCHC 32.2 RDW 14.0 Plt Count 425 MPV 10.1 Neut # (Auto) 9.1 H Lymph # (Auto) 0.6 L [place] # (Auto) 0.1 Eos # (Auto) 0.0 Baso # (Auto) 0.0 Absolute Nucleated RBC 0.00 Nucleated RBC % 0.0 Sodium 137 Potassium 3.8 Chloride 93 L Carbon Dioxide 29 Anion Gap 15.0 H BUN 28 H Creatinine 0.7 Estimated GFR (MDRD) 82 L Glucose 290 H Calcium 10.1 Total Bilirubin 0.6 AST 46 H ALT 77 H Alkaline Phosphatase 77 Troponin I High Sens 117.2 H* Total Protein 7.3 Albumin 4.4 Globulin 2.9 Albumin/Globulin Ratio 1.5 Lipase 29 05/08/19 12:05 WBC RBC Hgb Hct MCV MCH MCHC RDW Plt Count MPV Neut # (Auto) Lymph # (Auto) [place] # (Auto) Eos # (Auto) Baso # (Auto) Absolute Nucleated RBC Nucleated RBC % Sodium Potassium Chloride Carbon Dioxide Anion Gap BUN Creatinine Estimated GFR (MDRD) Glucose Calcium Total Bilirubin AST ALT Alkaline Phosphatase Troponin I High Sens 107.6 H* Total Protein Albumin Globulin Albumin/Globulin Ratio Lipase - Rads (name of study) chest Radiology: Prelim report reviewed (Impression: Increasing pulmonary vascular congestion with small left-sided pleural effusion. Findings may represent CHF exacerbation; however, Superimposed infectious process not excluded.), EMP read indepedently, See rad report Procedures - IVC sono (time) 0730 Bedside IVC sono: IVC measures (cm) (2.52), IVC collapsed c insp (cm) (2.52), High CVP, Fluid overload PD MEDICAL DECISION MAKING - ED course Complexity details: reviewed old records, reviewed results, re-evaluated patient, considered differential, d/w patient, d/w family ED course: 73-year-old female undergoing chemo for non-Hodgkin's B-cell lymphoma with doxorubicin has developed congestive heart failure with atrial fibrillation with rapid ventricular response. She is arrives to the emergency department with a heart rate of 140 and diastolic of greater than 110. She is found to be volume overloaded on interrogation the inferior vena cava and she is administered diltiazem 20 mg intravenously for rate control and 40 mg of Lasix intravenously for diuresis. Departure - Departure Disposition: Home, Self Care Clinical Impression: Atrial fibrillation with RVR, Elevated troponin Congestive heart failure Qualifiers: Heart failure type: unspecified Heart failure chronicity: acute on chronic Qualified Code(s): I50.9 - Heart failure, unspecified Condition: Stable Instructions: ED Afib, ED CHF General Follow-Up: Fredy Hagen MD [Primary Care Provider] - Prescriptions: Furosemide [Lasix] 40 mg PO DAILY #20 tablet Potassium Chloride 10 meq PO DAILY #20 tablet.er Comments: Today it appears that you have retained some fluid and have some congestive heart failure associated with this. In order to get the rest of this fluid out you will need to take some Lasix for the next 5 days. Anytime you are taking Lasix take some additional potassium. My recommendation today is to weigh yourself when you get home and weigh yourself daily at the same time every day. Eventually you will get your dry weight. You will then be able to use that #2 determine when to take additional Lasix. Follow-up with Dr. Webster this week. We are expecting you to continue to improve and, if you have worsening of your symptoms, return to the hospital immediately.
--- NOTE | 2019-05-08 07:36 | XRAY Report ---
Reason: Chest pain Procedure Date: 05/08/2019 Accession Number: [id number] / [id number] Procedure: XR - Chest 1 View X-Ray CPT Code: 17740 Final Report FULL RESULT: EXAM: CHEST RADIOGRAPHY EXAM DATE: 05/08/2019 07:19 AM. CLINICAL HISTORY: Chest pain. COMPARISON: CHEST 2 VIEW 03/12/2019 12:31 PM. TECHNIQUE: 1 view. FINDINGS: Lungs/Pleura: Small left-sided pleural effusion. Increasing pulmonary vascular congestion. Lorna B-lines on the right. Mediastinum: Within exam limitations, the cardiomediastinal contour is normal. Other: Left sided Port-A-Cath. IMPRESSION: Increasing pulmonary vascular congestion with small left-sided pleural effusion. Findings may represent CHF exacerbation; however, superimposed infectious process not excluded. RADIA
[2019-05-08 09:58] LABS: BASOPHILS % (AUTO) 0.3 %; HGB - HEMOGLOBIN 11.9 g/dL (12.0-16.0); LYMPHOCYTES # (AUTO) 0.6 10^3/uL (1.5-3.5); LYMPHOCYTES % (AUTO) 6.2 %; MEAN CORPUSCULAR HEMOGLOBIN 29.5 pg (27.0-31.0); MEAN CORPUSCULAR HGB CONC 32.2 g/dL (32.0-36.0); MEAN CORPUSCULAR VOLUME 91.3 fL (81.0-99.0); MEAN PLATELET VOLUME 10.1 fL (7.9-10.8); MONOCYTES # (AUTO) 0.1 10^3/uL (0.0-1.0); MONOCYTES % (AUTO) 1.2 %; NEUTROPHILS # (AUTO) 9.1 10^3/uL (1.5-6.6); NEUTROPHILS % (AUTO) 92.1 %; PLT - PLATELET COUNT 425 10^3/uL (130-450); RED BLOOD COUNT 4.04 10^6/uL (4.20-5.40); WHITE BLOOD COUNT 9.9 x10^3/uL (4.8-10.8)
[2019-05-08 10:11] LABS: ALBUMIN 4.4 g/dL (3.2-5.5); ALBUMIN/GLOBULIN RATIO 1.5 (1.0-2.2); BILIRUBIN,TOTAL 0.6 mg/dL (0.2-1.0); CALCIUM 10.1 mg/dL (8.5-10.3); CREATININE 0.7 mg/dL (0.4-1.0); TOTAL PROTEIN 7.3 g/dL (6.7-8.2)
[2019-05-08 12:57] VITALS: BP 119/70
== END 2019-05-08 13:19 | disposition home or self-care (01) ==
LOC: ED 06:46
DX: I11.0 Hypertensive heart disease with heart failure (principal); I50.9 Heart failure, unspecified; I48.91 Unspecified atrial fibrillation; R79.89 Other specified abnormal findings of blood chemistry; E11.9 Type 2 diabetes mellitus without complications; Z79.01 Long term (current) use of anticoagulants; Z79.84 Long term (current) use of oral hypoglycemic drugs
CPT/HCPCS: 36415; 71045; 80053; 83690; 84484; 85025; 93005; 96374; 96375; 96376; 99284

== ENCOUNTER 2019-05-27 02:38 | Outpatient (CLI) | payer MEDICARE, OTHER | END 2019-05-27 02:39 | disposition critical access hospital (66) | LOC: EMS 02:38 | PROVIDERS: ATTEND Surgery | DX: R09.89 Other specified symptoms and signs involving the circulatory and respiratory systems (principal) | CPT/HCPCS: A0425; A0429 ==

== ENCOUNTER 2019-05-27 03:02 | Observation (INO) | payer MEDICARE, OTHER ==
--- NOTE | 2019-05-27 03:05 | ED Physician Documentation ---
History of Present Illness - Stated complaint Stated Complaint: A-FIB - History obtained from History obtained from: Patient (Patient is a 73-year-old female who presents via EMS with a chief complaint of rapid heartbeat and shortness of breath she has a known history of atrial fibrillation with rapid ventricular response on Eliquis 5 mg daily she recently completed chemotherapy for non-Hodgkin's B-cell lymphoma. she does report a history of hypercoagulability. She denies any hemoptysis today. she denies lower extremity edema but reports orthopnea.) Review of Systems Constitutional: reports: Reviewed and negative Eyes: reports: Reviewed and negative Ears: reports: Reviewed and negative Nose: reports: Reviewed and negative Throat: reports: Reviewed and negative Cardiac: reports: Palpitations Respiratory: reports: Reviewed and negative GI: reports: Reviewed and negative : reports: Reviewed and negative Skin: reports: Reviewed and negative Musculoskeletal: reports: Reviewed and negative Neurologic: reports: Reviewed and negative Psychiatric: reports: Reviewed and negative Endocrine: reports: Reviewed and negative Immunocompromised: reports: Reviewed and negative PD PAST MEDICAL HISTORY - Past Medical History Cardiovascular: Hypertension, Valve disorder Respiratory: None Neuro: None Endocrine/Autoimmune: Type 2 diabetes GI: None INTERACTIVE MEDIA DESIGNER: None : None HEENT: None Psych: None Musculoskeletal: None Derm: None - Past Surgical History Past Surgical History: Yes General: Cholecystectomy /INTERACTIVE MEDIA DESIGNER: section, Hysterectomy, Other - Present Medications Home Medications: Ambulatory Orders Medication Instructions Recorded Confirmed metFORMIN [Glucophage] 500 mg PO BID 04/23/15 05/27/19 Apixaban [Eliquis] 5 mg PO BID 03/12/19 05/27/19 Metoprolol Tartrate 50 mg PO DAILY 03/12/19 05/27/19 Furosemide [Lasix] 40 mg PO DAILY #20 tablet 05/08/19 05/27/19 Multivitamin/Iron/Folic Acid 1 applic PO DAILY 05/27/19 05/27/19 [Centrum Adults Tablet] Potassium Gluconate 99 mg PO DAILY 05/27/19 05/27/19 Vit B6/Me-Thfolate/Me-B12/Ala 100 mg pe PO DAILY 05/27/19 05/27/19 [Nufola Capsule] lisinopriL [Lisinopril] 10 mg PO DAILY 05/27/19 05/27/19 - Allergies Allergies/Adverse Reactions: Allergies Allergy/AdvReac Type Severity Reaction Status Date / Time Sulfa (Sulfonamide Allergy Rash Verified 05/27/19 03:13 Antibiotics) - Social History Does the pt smoke?: No Smoking Status: Never smoker Does the pt drink ETOH?: No Does the pt have substance abuse?: No - Immunizations Immunizations are current?: Yes - POLST Patient has POLST: No PD ED PE NORMAL - Vitals Vital signs reviewed: Yes - General General: Alert and oriented X 3, No acute distress - HEENT HEENT: Atraumatic, PERRL, Ears normal, Pharynx benign - Neck Neck: Supple, no meningeal sign, No JVD - Cardiac Cardiac: Strong equal pulses, Other (Tachycardic and irregularly irregular) - Respiratory Respiratory: No respiratory distress, Clear bilaterally - Abdomen Abdomen: Normal bowel sounds, Soft, Non tender, Non distended, No organomegaly - Female Female : Deferred - Rectal Rectal: Deferred - Back Back: No CVA TTP, No spinal TTP - Derm Derm: Warm and dry - Extremities Extremities: No deformity, No tenderness to palpate, Normal ROM s pain, No edema, No calf tenderness / cord - Neuro Neuro: Alert and oriented X 3, chief radiologic technologist 2-12 intact, No motor deficit, No sensory deficit, Normal speech, Other - Psych Psych: Normal mood, Normal affect Results - Vitals Vitals: Vital Signs - 24 hr 05/27/19 05/27/19 05/27/19 03:10 03:26 03:28 Temperature 37.3 C Heart Rate 137 H 138 H 108 H Respiratory 17 17 17 Rate Blood Pressure 155/107 H 124/78 O2 Saturation 97 96 95 05/27/19 05/27/19 05/27/19 03:35 03:45 03:56 Temperature Heart Rate 110 H 109 H 112 H Respiratory 17 16 17 Rate Blood Pressure 134/91 H O2 Saturation 96 96 96 05/27/19 05/27/19 05/27/19 04:05 04:11 04:35 Temperature Heart Rate 110 H 99 99 Respiratory 19 15 17 Rate Blood Pressure 138/109 H 137/92 H O2 Saturation 96 98 99 05/27/19 05/27/19 05/27/19 04:57 05:13 05:32 Temperature Heart Rate 99 107 H 110 H Respiratory 16 17 17 Rate Blood Pressure 139/84 H 141/92 H O2 Saturation 97 97 98 05/27/19 06:02 Temperature Heart Rate 115 H Respiratory 16 Rate Blood Pressure 123/97 H O2 Saturation 97 Oxygen O2 Source Nasal cannula Oxygen Flow Rate 2 - EKG (time done) 03:04 Rate: Other (No STEMI, atrial fibrillation with rapid ventricular rate) 03:56 Rate: Other (no stemi, afib w rvr.) - Labs Labs: Laboratory Tests 05/27/19 05/27/19 05/27/19 03:20 03:20 03:20 WBC 8.3 RBC 3.79 L Hgb 11.5 L Hct 35.8 L MCV 94.5 MCH 30.3 MCHC 32.1 RDW 14.5 Plt Count 431 MPV 9.5 Neut # (Auto) 5.2 Lymph # (Auto) 1.7 [place] # (Auto) 1.0 Eos # (Auto) 0.2 Baso # (Auto) 0.1 Absolute Nucleated RBC 0.00 Nucleated RBC % 0.0 PT 12.1 INR 1.1 APTT 36.8 H Sodium 136 Potassium 3.6 Chloride 101 Carbon Dioxide 24 Anion Gap 11.0 BUN 27 H Creatinine 0.8 Estimated GFR (MDRD) 71 L Glucose 228 H Calcium 9.2 Total Bilirubin 0.7 AST 26 ALT 35 Alkaline Phosphatase 65 Total Creatine Kinase 39 Troponin I High Sens B-Natriuretic Peptide Total Protein 6.5 L Albumin 4.1 Globulin 2.4 Albumin/Globulin Ratio 1.7 Lipase 28 TSH 05/27/19 05/27/19 05/27/19 03:20 03:20 03:20 WBC RBC Hgb Hct MCV MCH MCHC RDW Plt Count MPV Neut # (Auto) Lymph # (Auto) [place] # (Auto) Eos # (Auto) Baso # (Auto) Absolute Nucleated RBC Nucleated RBC % PT INR APTT Sodium Potassium Chloride Carbon Dioxide Anion Gap BUN Creatinine Estimated GFR (MDRD) Glucose Calcium Total Bilirubin AST ALT Alkaline Phosphatase Total Creatine Kinase Troponin I High Sens 62.8 H* B-Natriuretic Peptide 488 H Total Protein Albumin Globulin Albumin/Globulin Ratio Lipase TSH 2.52 05/27/19 05:25 WBC RBC Hgb Hct MCV MCH MCHC RDW Plt Count MPV Neut # (Auto) Lymph # (Auto) [place] # (Auto) Eos # (Auto) Baso # (Auto) Absolute Nucleated RBC Nucleated RBC % PT INR APTT Sodium Potassium Chloride Carbon Dioxide Anion Gap BUN Creatinine Estimated GFR (MDRD) Glucose Calcium Total Bilirubin AST ALT Alkaline Phosphatase Total Creatine Kinase Troponin I High Sens 64.3 H* B-Natriuretic Peptide Total Protein Albumin Globulin Albumin/Globulin Ratio Lipase TSH PD MEDICAL DECISION MAKING - ED course Complexity details: re-evaluated patient (patient troponin is similar to initial troponin, she continues to remain in a fib rvr, case d/w hospitalist dr. sue, patient will be admitted here for a fib rvr and elevated troponin. patient and family updated and are agreeable to plan.), considered differential (Acute decompensated congestive heart failure, Recurrent atrial fibrillation with rapid ventricular response. ), other (Patient does have an elevated troponin, her previous troponins were reviewed, she is has what appears to be chronically elevated troponins. She is denying chest pain currently but does report some associated shortness of breath. Plan is to repeat her troponin in 2 hours as well as EKG and consult the hospitalist for admission.) - Consults Consults: Discussed case with (dr sue, hospitalist, will admit. ) - Critical Care Time(min): 74 Time Includes: Direct patient care, Review records, Reassess patient, Document care, Coordinate care, Medical consult Data interpretation: Labs, Pulse ox, CXR, Prior EKG Procedures included in critical care time: Peripheral IV Procedures excluded from critical care time: EKG Departure - Departure Disposition: 66 [facility] DC/Xfer Clinical Impression: Atrial fibrillation with rapid ventricular response, Elevated troponin Condition: Fair
[2019-05-27] MEDS ORDERED: diltiaZEM INJ 5 MG/ML VIAL IVP STA ×2 (03:16→03:58)
[2019-05-27] MEDS ORDERED: SODIUM CHLORIDE 0.9% 1,000 ML IV ONE (03:16)
[2019-05-27] MEDS ORDERED: diltiaZEM INJ 125 MG in DEXTROSE 5% 100 ML IV STA (03:21)
[2019-05-27 03:28] LABS: BASOPHILS # (AUTO) 0.1 10^3/uL (0.0-0.1); BASOPHILS % (AUTO) 1.7 %; EOSINOPHILS # (AUTO) 0.2 10^3/uL (0.0-0.7); EOSINOPHILS % (AUTO) 2.1 %; HGB - HEMOGLOBIN 11.5 g/dL (12.0-16.0); LYMPHOCYTES # (AUTO) 1.7 10^3/uL (1.5-3.5); LYMPHOCYTES % (AUTO) 20.2 %; MEAN CORPUSCULAR HEMOGLOBIN 30.3 pg (27.0-31.0); MEAN CORPUSCULAR HGB CONC 32.1 g/dL (32.0-36.0); MEAN CORPUSCULAR VOLUME 94.5 fL (81.0-99.0); MEAN PLATELET VOLUME 9.5 fL (7.9-10.8); MONOCYTES % (AUTO) 12.2 %; NEUTROPHILS # (AUTO) 5.2 10^3/uL (1.5-6.6); NEUTROPHILS % (AUTO) 63.2 %; PLT - PLATELET COUNT 431 10^3/uL (130-450); RED BLOOD COUNT 3.79 10^6/uL (4.20-5.40); RED CELL DISTRIBUTION WIDTH 14.5 % (12.0-15.0); WHITE BLOOD COUNT 8.3 x10^3/uL (4.8-10.8)
[2019-05-27 03:32] LABS: INR 1.1 (0.8-1.2); PT - PROTHROMBIN TIME 12.1 secs (9.9-12.6)
[2019-05-27] MEDS ORDERED: diltiaZEM INJ 5 MG/ML VIAL ONE (03:34)
[2019-05-27 03:39] LABS: PARTIAL THROMBOPLASTIN TIME 36.8 secs (24.9-33.3)
[2019-05-27 03:42] LABS: ALBUMIN 4.1 g/dL (3.2-5.5); ALBUMIN/GLOBULIN RATIO 1.7 (1.0-2.2); BILIRUBIN,TOTAL 0.7 mg/dL (0.2-1.0); CALCIUM 9.2 mg/dL (8.5-10.3); CREATININE 0.8 mg/dL (0.4-1.0); TOTAL PROTEIN 6.5 g/dL (6.7-8.2)
--- NOTE | 2019-05-27 03:43 | XRAY Report ---
Reason: SOB Procedure Date: 05/27/2019 Accession Number: [id number] / [id number] Procedure: XR - Chest 1 View X-Ray CPT Code: 18076 Final Report FULL RESULT: EXAM: CHEST RADIOGRAPHY EXAM DATE: 05/27/2019 03:34 AM CLINICAL HISTORY: SOB. COMPARISON: CHEST 1 VIEW 05/08/2019 7:05 AM. TECHNIQUE: 1 view. FINDINGS: Lungs/Pleura: Mild interstitial and airspace opacities throughout both lungs. No pleural effusion. No pneumothorax. Mediastinum: Mild cardiomegaly. Other: Pravin catheter tip located in the region of the junction of the SVC and right atrium. Postsurgical changes at the base of the neck. IMPRESSION: Interstitial and airspace opacities throughout both lungs, which may reflect mild pulmonary edema or a diffuse inflammation/infection. RADIA
[2019-05-27] MEDS ORDERED: ONDANSETRON 4 MG/2 ML VIAL IVP PRN (06:14)
[2019-05-27] MEDS ORDERED: ACETAMINOPHEN 325 MG TABLET PO PRN (06:14)
[2019-05-27] MEDS ORDERED: SODIUM CHLORIDE FLUSH 0.9% 10 ML SYRINGE IVP PRN (06:14)
[2019-05-27] MEDS ORDERED: METOPROLOL 5 MG/5 ML VIAL IVP STA (06:16)
[2019-05-27] MEDS ORDERED: POTASSIUM CHLORIDE 20 MEQ TABLET PO SCH (07:11)
[2019-05-27] MEDS: SODIUM CHLORIDE FLUSH 0.9% 10 ML SYRINGE IVP SCH ×2 (08:14→16:59)
[2019-05-27] MEDS: INSULIN ASPART 300 UNIT/3 ML PEN SUBQ SCH ×3 (08:15→16:56)
[2019-05-27] MEDS ORDERED: APIXABAN 5 MG TABLET PO SCH (09:00)
[2019-05-27] MEDS ORDERED: METOPROLOL TARTRATE 50 MG TABLET PO SCH (09:00)
[2019-05-27 10:08] LABS: BILIRUBIN,URINE NEGATIVE (NEGATIVE); CLARITY,URINE CLEAR (CLEAR); GLUCOSE, URINE (UA) NEGATIVE (NEGATIVE); KETONES,URINE (UA) NEGATIVE (NEGATIVE); LEUKOCYTE ESTERASE, URINE NEGATIVE (NEGATIVE); NITRITE,URINE NEGATIVE (NEGATIVE); OCCULT BLOOD,URINE NEGATIVE (NEGATIVE); PH,URINE 5.5 PH (5.0-7.5); PROTEIN,URINE TRACE mg/dL (NEGATIVE); UROBILINOGEN,URINE 0.2 (NORMAL) E.U./dL (NORMAL)
--- NOTE | 2019-05-27 12:33 | HISTORY & PHYSICAL EXAMINATION ---
DATE OF SERVICE: 05/27/2019 Physician: Suzy Hinkle MD HISTORY OF PRESENT ILLNESS: This is a 73-year-old white female with a history of atrial fibrillation, hypertension, diabetes, lymphoma. She was found to have masses in the abdomen and chest in 2019 when she was visiting relatives in [place] and ended up being hospitalized for 4 months for findings of clots, lymphoma, which was diagnosed as non-Hodgkin B-cell lymphoma. She required a splenectomy and also IVC filter, which has subsequently been removed. She returned back to [facility] and continued treatment of her non-Hodgkin's lymphoma at the [facility] here. She states that in February of 2019, her body scan showed that she was completely clear of lymphoma in the abdomen and chest. Over the past year, mostly when getting chemotherapy, she had developed paroxysmal atrial fibrillation with rapid ventricular response. She has had several visits to the ER for heart rate control. She is being followed by Dr. Casimiro Webster. Patient states that he has been planning on doing stress testing but was waiting for the cancer to be in remission. She has had Echos in the past, and 1 year ago she had an Echo here showing normal LVEF. Two months ago, she had an Echo, which showed a small decrease of ejection fraction to 45%. She now has more frequent episodes of paroxysms of atrial fibrillation and can feel these as rapid palpitations. They also give her lower chest pressure and shortness of breath. Patient presents with an episode of her typical palpitations that kept her up all night, associated with lower chest and epigastric pressure and mild dyspnea. She came into the emergency room and was found to be in atrial fibrillation with rapid ventricular response of 150, received IV heart rate slowing medications but the rate is still elevated at 110-120, thus she is being placed in Observation for further management. ALLERGIES: SULFA. MEDICATIONS 1. Multivitamin daily. 2. Potassium gluconate 99 mg daily. 3. Lisinopril 10 mg daily. 4. Eliquis 5 mg b.i.d. 5. Metoprolol tartrate 50 mg daily. 6. Lasix 40 mg daily. 7. Metformin 500 mg b.i.d. FAMILY HISTORY: No cardiac history in the family. SOCIAL HISTORY: Patient is a nonsmoker, drinks no alcohol. No illicit drug use history. REVIEW OF SYSTEMS: Patient's daughter is at her bedside and supplies a lot of the history. Patient became a diabetic as she was being treated for the non- Hodgkin's lymphoma. Patient checks her blood pressure at home. Patient has never had a stress test since here Community Engagement Manager was waiting for lymphoma to be in remission. Her next visit to Dr. Webster is in 2 weeks for a routine visit. Patient is to have an MRI to stage if the lymphoma continues to be in remission, which is pending tomorrow as an outpatient. A comprehensive review of systems was performed, and the pertinent positives are listed, and the rest are negative. PHYSICAL EXAMINATION GENERAL: White female who appears younger than her age. She has mild alopecia. VITAL SIGNS: Blood pressure 120/80, heart rate 100-115 in atrial fibrillation, afebrile, room air saturation 94%. HEENT: Revealed alopecia, moist oral mucosa. NECK: Without JVD. No carotid bruits. CHEST: Clear lung sounds. HEART: Irregular and tachycardic, but no murmur. ABDOMEN: Soft, nontender. Positive bowel sounds. EXTREMITIES: No clubbing, cyanosis, or edema. NEUROLOGIC: Grossly intact. LABORATORY DATA: Troponins 62 and 64. TSH 2.52. Normal electrolytes, BUN 27, creatinine 0.8. Normal liver tests. BNP 488. White blood count 8.3, hemoglobin 11.5, platelet count 431. Urinalysis unremarkable. EKG: Atrial fibrillation with a rapid rate of 150. Low voltage EKG and T-wave flattening present in the inferior leads. CHEST X-RAY: Possible interstitial edema and possible airspace disease. IMPRESSION AND RECOMMENDATIONS 1. Atrial fibrillation with rapid ventricular response, worsened by chemo, hyperthyroidism ruled out. 2. Foknv-sw-owgyvrj systolic heart failure. 3. Chest pain with elevated troponins; however, these are in a flat pattern. 4. History of hypertension. 5. History of cardiomyopathy. 6. Diabetes, on oral agents. 7. Lymphoma, in remission. 8. Status post splenectomy. 9. Status post inferior vena cava filter removal. PLAN: Place the patient in Observation status on telemetry. Continue with increased beta-fawad treatment for rate control and continue with her Eliquis. Since her Echo was just done 6 weeks ago, a repeat echo was not needed. Proceed to a stress test for evaluation of the chest and epigastric pressure symptoms and the elevated troponin. I would recommend adjustment in her medications with long-acting beta-fawad instead of metoprolol tartrate, but to have metoprolol tartrate as a "pill in the pocket" to use an extra dose if she gets paroxysms of rapid atrial fibrillation. Continue with her other management for blood pressure and diabetes. DEEP VENOUS THROMBOSIS PROPHYLAXIS: Pharmacotherapy with her Eliquis. CODE STATUS: FULL CODE. ATTESTATION: Patient is expected to be discharged or transferred to another facility within 96 hours: Yes. cc: MD Casimiro Ledbetter MD TD: 05/27/2019 12:09 MTDD
--- NOTE | 2019-05-27 15:39 | Discharge Plan ---
Discharge Plan Problem Reviewed?: Yes Disposition: Home, Self Care Condition: Fair Prescriptions: Metoprolol Succinate [Toprol Xl] 50 mg PO DAILY #30 tab.er.24h Diet: Diabetic (and Low salt diet) Activity Restrictions: Activity as Tolerated Shower Restrictions: No Driving Restrictions: No Weight Bearing: Full Weight Instruction Topics: Atrial Fibrillation Health Concerns: You were here in extended Observation status to manage the rapid Afib. You also underwent stress testing to evaluate the chest/upper abdominal pressure. The stress test is abnormal, suspicious for coronary artery disease. Your medications were changed. Take extended release Metoprolol Succinate 50 mg once daily in the morning, the new prescription was sent to your pharmacy electronically. Take an additional one tablet of the (old) Metoprolol Tartrate only if you get "break through" of rapid Afib, and the pulse is greater than 125. All other medications and doses should remain the same. Keep the appointment for the PET scan tomorrow. Keep the upcoming appointment to Dr Poe. Plan of Treatment: As above. You should only do light activity, no heavy lifting, no yardwork or exercise, until seen by your District Plant Supervisor. You will likely need a coronary angiogram. Care Goals: Improvement in symptoms and stabilization are the goals. Assessment: The patient and daughter understand and are agreeable with the plan. Additional Instructions or Follow Up instructions: If you have new or worsening symptoms, call your PCP or your District Plant Supervisor or come to the ER. No Smoking: If you smoke, Please STOP! Call for help. Follow-up with: Fredy Hagen MD [Primary Care Provider] -
[2019-05-27] MEDS ORDERED: METOPROLOL SUCCINATE 50 MG TABLET PO SCH ×2 (16:00→21:00)
[2019-05-27 16:52] VITALS: BP 102/77
--- NOTE | 2019-05-27 17:02 | Nuclear Medicine Report ---
Reason: Chest pain Procedure Date: 05/27/2019 Accession Number: [id number] / [id number] Procedure: NM - Myocardial Perfusion STR/RST CPT Code: Addended Final Report FULL RESULT: EXAM: SINGLE-ISOTOPE EXERCISE STRESS TEST. SINGLE-ISOTOPE AND ONE-DAY REST/STRESS MYOCARDIAL PERFUSION SCANS WITH TOMOGRAPHIC IMAGING, QUANTITATIVE ANALYSIS, WALL MOTION ANALYSIS AND CALCULATION OF EJECTION FRACTION. EXAM DATE: 05/27/2019 04:21 PM. CLINICAL HISTORY: Chest pain. COMPARISON: None available. TECHNIQUE: A rest myocardial perfusion scan was done with tomography after the intravenous administration of 10 mCi Tc-99m sestamibi. After an appropriate delay, a treadmill exercise stress was performed according to department protocol. The patient exercised for 1 minutes and 42 seconds. The maximum heart rate was 162 bpm, which was greater than 100% of the maximum predicted heart rate of 148 bpm. At approximately peak heart rate, standard dose mCi of Tc-99m sestamibi was injected for stress myocardial perfusion scan. Motion correction was applied when appropriate. The patient's resting heart rate was 121-130 bpm. Gated tomographic images were obtained for wall motion analysis and computation of left ventricular ejection fraction. FINDINGS: Images show a moderate-sized and mild to moderate severity anteroseptal wall and anterior apical perfusion defect which appears larger and more severe on the stress images compared to the rest images. Additional mild reversible perfusion defect in the lateral wall. Summed stress score 7 Summed rest score 2 Summed difference score 5 Wall motion analysis demonstrates diffuse hypokinesis, greatest in the septum. The left ventricular end-diastolic volume is 96 cc. The left ventricular end-systolic volume is 79 cc. The left ventricular ejection fraction is calculated to be 17%. IMPRESSION: 1. Moderate sized, mild to moderate severity partially fixed and partially reversible perfusion defect involving the mid to distal anteroseptal wall and anterior apex. Mild severity reversible perfusion defect in the lateral wall. 2. Abnormal left ventricular ejection fraction of 17%. 3. Diffuse hypokinesis, most focally in the septum. 4. Normal left ventricular cavity size, no change with stress. 5. Of note, the patient's resting heart rate was measured at 121-130 bpm. Please correlate findings with stress ECG tracings and procedure notes. RADIA The call report notification system was initiated by Dr. Rasta Kaplan at 04:57 PM on 05/27/2019. ADDENDUM: 05/27/19 17:02 The above call report findings were discussed with Dr. Hinkle by Dr. Rasta Kaplan at 05:02 PM on 05/27/2019.
--- NOTE | 2019-05-27 17:31 | DISCHARGE SUMMARY ---
Discharge Summary Admit Date: 05/27/19 Discharge Date: 05/27/19 Discharging Provider: Dr Suzy Hinkle Primary Care Provider: Dr El Hagen Code Status: Attempt Resuscitation Condition at Discharge: Fair Discharge Disposition: 01 Home, Self Care - DIAGNOSES Admission Diagnoses: 1. A. fib with RVR 2. Acute on chronic systolic heart failure 3. Chest pain with elevated but flat troponins 4. HTN 5. 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 Diabetes 7. Lymphoma 8. Status-post splenectomy 9. Status-post IVC filter and removal Discharge Diagnoses with Status of Each Condition: See below - HPI History of Present Illness: This is a 73-year-old white female with a history of non-Hodgkins lymphoma diagnosed 2019, diabetes, hypertension, mild cardiomyopathy probably from chemotherapy found on Echo done 6 weeks ago, atrial fib which is paroxysmal and worse when she would get chemotherapy. She is on Eliquis. Over the past 2 months she has had 2 ER visits for A. fib with RVR, received IV heart rate controlling meds and discharged. She feels palpitations when she goes into A. fib. Her final chemotherapy was 2 weeks ago, and a follow-up PET scan is sc heduled for tomorrow. Last night she went into A. fib and the palpitations "kept her up all night". She presented to the emergency room with this complaint and was found to be in A. fib with RVR, rate 150. She described mild dyspnea on exertion and admitted that whenever she has palpitations she also gets chest pressure in the lower chest and upper abdomen. She has never had a stress test; she believes that her Referral Manager has been waiting for the malignancy to be in remission before undergoing a stress test. She received IV metoprolol and rate only dropped to 110-120. Her other work-up showed hs- troponin of 62, BNP 488, TSH normal at 2.52 and chest x-ray showed CHF. She was placed in Observation on telemetry for managing her rapid heart rate and treating CHF. - HOSPITAL COURSE Hospital Course: 1. A. fib with RVR She was put on additional metoprolol orally and heart rate improved to the 90- 100s. She was also changed from metoprolol tartrate 50 mg daily to metoprolol succinate 50 mg at discharge to take daily and told to use her previous metoprolol tartrate as a "pill in the pocket", to take as an additional dose daily if her heart rate would be over 125. Her Eliquis continued. 2. Acute on chronic systolic heart failure The LVEF was normal in June 2018, then down to 45% by Echo done in March 2019. An Echo was not repeated here. She received 1 dose of IV Lasix. The plan was to continue with her home oral Lasix. She underwent a stress test (see below), and the EF by nuclear scan was lower than 20%. She was kept on her Lisinopril. Starting Spironolactone would be left up to her PCP or Referral Manager. 3. Chest pain with elevated but flat troponins The hs-troponins were 62, 64, 62. She underwent a Reji-protocol treadmill stress test with nuclear myocardial perfusion imaging. She became short of breath after 1 minute and did developed her "chest pressure". The heart rate doris to 162 in A. fib. There were no ischemic EKG changes with exercise. The nuclear scan was read as having EF less than 20% with anterior wall reversible defect plus scar, and a lateral wall reversible defect. She was advised that she will need an angiogram and advised to have light activity until an angiogram is done. Adding aspirin to her Eliquis and checking her cholesterol should be done by her PCP or Referral Manager. 4. HTN BP was running 120-150s/70s-80s with her current combination of medications. 5. 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 6. Diabetes She was on a carb controlled diet with sliding scale insulin while here; her home diabetic management was to resume after discharge. 7. Lymphoma She was discharged on the evening of the same inside contractor sales that she was admitted, in order for her to go to the PET scan appointment at [facility] the following day. Continue follow-up with her Oncologist. 8. Status-post splenectomy 9. Status-post IVC filter and removal 10. Abnormal Stress Test. As above in #3. - ALLERGIES Allergies/Adverse Reactions: Allergies Allergy/AdvReac Type Severity Reaction Status Date / Time Sulfa (Sulfonamide Allergy Rash Verified 05/27/19 03:13 Antibiotics) - MEDICATIONS Home Medications: Ambulatory Orders Medication Instructions Recorded Confirmed metFORMIN [Glucophage] 500 mg PO BID 04/23/15 05/27/19 Apixaban [Eliquis] 5 mg PO BID 03/12/19 05/27/19 Furosemide [Lasix] 40 mg PO DAILY #20 tablet 05/08/19 05/27/19 Furosemide [Lasix] 40 mg PO DAILY PRN #30 tablet 05/27/19 Metoprolol Succinate [Toprol Xl] 50 mg PO DAILY #30 tab.er.24h 05/27/19 Metoprolol Tartrate [Lopressor] 50 mg PO DAILY PRN tablet 05/27/19 Multivitamin/Iron/Folic Acid 1 applic PO DAILY 05/27/19 05/27/19 [Centrum Adults Tablet] Potassium Gluconate 99 mg PO DAILY 05/27/19 05/27/19 Vit B6/Me-Thfolate/Me-B12/Ala 100 mg pe PO DAILY 05/27/19 05/27/19 [Nufola Capsule] lisinopriL [Lisinopril] 10 mg PO DAILY 05/27/19 05/27/19 - PHYSICAL EXAM AT DISCHARGE General Appearance: positive: No acute distress, Alert Eyes Bilateral: positive: Normal inspection, EOMI ENT: positive: ENT inspection nml, No signs of dehydration Neck: positive: Nml inspection, No JVD Respiratory: positive: No respiratory distress, Other (Fine crackles R base) Cardiovascular: positive: No murmur, Irregularly irregular, Tachycardia Abdomen: positive: Non-tender, No distention Skin: positive: Color nml Extremities: positive: Non-tender, No pedal edema Neurologic/Psychiatric: positive: Oriented x3, Motor nml, Other (Non-focal) - LABS Result Diagrams: 05/27/19 03:20 05/27/19 03:20 - DIAGNOSTIC IMAGING Diagnostic Imaging Results: Final report reviewed - FOLLOW UP Follow Up: See PCP for hospital follow-up in a week. See Referral Manager at previously scheduled appointment in 2 weeks.
--- NOTE | 2019-05-27 17:46 | CARDIAC PROCEDURE NOTE ---
DATE OF SERVICE: 05/27/2019 Physician: Suzy Hinkle MD INDICATION: Chest pain. CARDIAC RISK FACTORS: Diabetes, hypertension, postmenopausal status. DESCRIPTION OF PROCEDURE: After signing informed consent, the patient underwent a Reji-protocol treadmill stress test with nuclear myocardial perfusion imaging. RESTING HEART RATE: 113-120, in atrial fibrillation. PEAK HEART RATE: 162 (109% predicted maximum heart rate for age). RESTING BLOOD PRESSURE: 131/98. PEAK BLOOD PRESSURE: 176/70. The patient exercised for 1 minute and 42 seconds on a Reji-protocol treadmill stress test. The patient reached a peak heart rate of 162 (109% PMHR) and only 3.95 METS. Her oxygen saturation remained greater than 95% on room air throughout the test. The patient developed shortness of breath quickly and developed her typical chest "pressure" after 1 minute of exercise. These symptoms resolved in approximately 2 minutes of recovery. RESTING EKG: Atrial fibrillation, vertical axis. EKG AT PEAK: No new ST segment or T-wave abnormalities. SUMMARY 1. Abnormal resting EKG. 2. No ischemic ST segment or T-wave changes developed by EKG criteria. 3. Very poor exercise tolerance. 4. Tachycardia at rest. 5. Nuclear images reported separately. 6. This patient's cardiac risk based on all the above: High. cc: MD Fredy Ramirez MD TD: 05/27/2019 17:08 MTDD
[2019-05-28] MEDS ORDERED: METOPROLOL TARTRATE 50 MG TABLET PO PRN (08:00)
== END 2019-05-27 17:40 | disposition home or self-care (01) ==
LOC: EDUNIT# → ED 03:02 → MS2 06:14
PROVIDERS: ADMIT Internal Medicine; ATTEND Internal Medicine
DX: I48.0 Paroxysmal atrial fibrillation (principal); I11.0 Hypertensive heart disease with heart failure; I50.23 Acute on chronic systolic (congestive) heart failure; I42.9 Cardiomyopathy, unspecified; E11.9 Type 2 diabetes mellitus without complications; C85.90 Non-Hodgkin lymphoma, unspecified, unspecified site; R79.89 Other specified abnormal findings of blood chemistry; R07.9 Chest pain, unspecified; R91.8 Other nonspecific abnormal finding of lung field; Z78.0 Asymptomatic menopausal state; Z79.01 Long term (current) use of anticoagulants; Z79.84 Long term (current) use of oral hypoglycemic drugs; Z79.899 Other long term (current) drug therapy; Z90.710 Acquired absence of both cervix and uterus; Z90.81 Acquired absence of spleen; Z92.21 Personal history of antineoplastic chemotherapy
CPT/HCPCS: 36415; 71045; 78452; 80053; 81003; 82550; 83690; 83735; 83880; 84443; 84484; 85025; 85610; 85730; 93005; 93017; 96361; 96374; 96375; 96376; 99285; 99291; A9270; A9500; G0378; 81001; 87086

== ENCOUNTER 2019-09-05 06:33 | Emergency (ER) | payer MEDICARE, OTHER ==
[2019-09-05 07:05] LABS: BASOPHILS # (AUTO) 0.1 10^3/uL (0.0-0.1); BASOPHILS % (AUTO) 0.5 %; EOSINOPHILS # (AUTO) 0.1 10^3/uL (0.0-0.7); EOSINOPHILS % (AUTO) 0.9 %; HGB - HEMOGLOBIN 14.5 g/dL (12.0-16.0); LYMPHOCYTES # (AUTO) 2.6 10^3/uL (1.5-3.5); MEAN CORPUSCULAR HEMOGLOBIN 30.1 pg (27.0-31.0); MEAN CORPUSCULAR HGB CONC 33.3 g/dL (32.0-36.0); MEAN CORPUSCULAR VOLUME 90.2 fL (81.0-99.0); MEAN PLATELET VOLUME 9.7 fL (7.9-10.8); MONOCYTES # (AUTO) 0.9 10^3/uL (0.0-1.0); NEUTROPHILS # (AUTO) 6.1 10^3/uL (1.5-6.6); NEUTROPHILS % (AUTO) 62.3 %; PLT - PLATELET COUNT 287 10^3/uL (130-450); RED BLOOD COUNT 4.82 10^6/uL (4.20-5.40); RED CELL DISTRIBUTION WIDTH 13.2 % (12.0-15.0); WHITE BLOOD COUNT 9.7 x10^3/uL (4.8-10.8)
[2019-09-05] MEDS ORDERED: FUROSEMIDE 40 MG/4 ML VIAL IVP STA (07:08)
[2019-09-05] MEDS ORDERED: METOPROLOL 5 MG/5 ML VIAL IVP STA (07:08)
--- NOTE | 2019-09-05 07:11 | ED Physician Documentation ---
PD HPI CHEST PAIN - Stated complaint Stated Complaint: SOA - Chief complaint Chief Complaint: Resp - History obtained from History obtained from: Patient, Family - History of Present Illness Timing - onset: Today Timing - onset during: Sleep - Additional information Additional information: 74-year-old woman with history of atrial fibrillation, lymphoma in remission status post finishing up chemotherapy about 4 months ago. She had an admission a couple of months ago for rapid A. fib with chest pain, had a mildly abnormal nuclear stress test at the time and followed up in [facility] where she subsequently had coronary angiography which Showed per her no intervene of the lesion. Per her description it sounds like she had some distal stenoses that were not amenable to intervention. Upon awakening this morning she felt short of breath and had some substernal chest pressure. She also notes weight gain over the last few months despite being on Lasix. After cardiology consultation in [place] she is now on beta-blockade, Eliquis, Lasix at 40 mg a day. Also Aldactone.Exact medication list is unavailable since she does not have it with and last adjustments were done in [place]. Review of Systems Ten Systems: 10 systems reviewed and negative Constitutional: denies: Fever, Chills Cardiac: reports: Chest pain / pressure, Pedal edema. denies: Palpitations, Calf pain Respiratory: reports: Dyspnea. 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 : None HEENT: None Psych: None Musculoskeletal: None Derm: None - Past Surgical History Past Surgical History: Yes General: Cholecystectomy /FUNERAL SERVICE APPRENTICE: section, Hysterectomy, Other - Present Medications Home Medications: Ambulatory Orders Medication Instructions Recorded Confirmed metFORMIN [Glucophage] 500 mg PO BID 04/23/15 06/09/19 Apixaban [Eliquis] 5 mg PO BID 03/12/19 06/09/19 Furosemide [Lasix] 40 mg PO DAILY #20 tablet 05/08/19 06/09/19 Furosemide [Lasix] 40 mg PO DAILY PRN #30 tablet 05/27/19 06/09/19 Metoprolol Succinate [Toprol Xl] 50 mg PO DAILY #30 tab.er.24h 05/27/19 06/09/19 Metoprolol Tartrate [Lopressor] 50 mg PO DAILY PRN tablet 05/27/19 06/09/19 Multivitamin/Iron/Folic Acid 1 applic PO DAILY 05/27/19 06/09/19 [Centrum Adults Tablet] Potassium Gluconate 99 mg PO DAILY 05/27/19 06/09/19 Vit B6/Me-Thfolate/Me-B12/Ala 100 mg pe PO DAILY 05/27/19 06/09/19 [Nufola Capsule] lisinopriL [Lisinopril] 10 mg PO DAILY 05/27/19 06/09/19 diltiaZEM [Cardizem] 30 mg PO Q6H PRN #60 tablet 09/05/19 - Allergies Allergies/Adverse Reactions: Allergies Allergy/AdvReac Type Severity Reaction Status Date / Time Sulfa (Sulfonamide Allergy Rash Verified 09/05/19 06:47 Antibiotics) - Living Situation Living Situation: reports: With spouse/s.o. Living Arrangement: reports: At home - Social History Does the pt smoke?: No Smoking Status: Never smoker Does the pt drink ETOH?: No Does the pt have substance abuse?: No - Immunizations Immunizations are current?: Yes - POLST Patient has POLST: No PD ED PE NORMAL - Vitals Vital signs reviewed: Yes - General General: Alert and oriented X 3, No acute distress, Well developed/nourished - HEENT HEENT: PERRL, EOMI - Neck Neck: Supple, no meningeal sign, No bony TTP - Cardiac Cardiac: Other (Irregularly irregular and rapid without murmur) - Respiratory Respiratory: No respiratory distress, Clear bilaterally - Abdomen Abdomen: Non tender - Back Back: No CVA TTP, No spinal TTP - Derm Derm: Normal color, Warm and dry - Extremities Extremities: Other (Mild pedal edema, symmetric, no calf tenderness) - Neuro Neuro: Alert and oriented X 3, Normal speech Results - Vitals Vitals: Vital Signs - 24 hr 09/05/19 09/05/19 09/05/19 06:35 07:15 07:16 Temperature 36.6 C Heart Rate 121 H 119 H Respiratory 20 15 Rate Blood Pressure 141/113 H 123/88 H Blood Pressure 118/74 [Left] Blood Pressure 123/88 H [Right] O2 Saturation 99 97 09/05/19 09/05/19 09/05/19 07:37 08:11 08:30 Temperature Heart Rate 122 H 100 84 Respiratory 21 17 14 Rate Blood Pressure 113/72 108/74 96/67 Blood Pressure [Left] Blood Pressure [Right] O2 Saturation 96 96 94 09/05/19 09/05/19 09/05/19 09:00 09:30 10:04 Temperature Heart Rate 100 93 112 H Respiratory 15 15 16 Rate Blood Pressure 115/87 H 114/91 H 127/90 H Blood Pressure [Left] Blood Pressure [Right] O2 Saturation 97 97 100 Oxygen O2 Source Room air - EKG (time done) 0643 Rate: Rate (enter#) (142) Rhythm: Atrial fibrillation (With single PVC on the strip) [place]: Normal Ischemia: Non specific changes (Mild lateral ST depression, likely rate laded, borderline prolonged QRS interval) Computer interpretation: Agree with computer - Labs Labs: Laboratory Tests 09/05/19 09/05/19 09/05/19 06:58 06:58 06:58 WBC 9.7 RBC 4.82 Hgb 14.5 Hct 43.5 MCV 90.2 MCH 30.1 MCHC 33.3 RDW 13.2 Plt Count 287 MPV 9.7 Neut # (Auto) 6.1 Lymph # (Auto) 2.6 [place] # (Auto) 0.9 Eos # (Auto) 0.1 Baso # (Auto) 0.1 Absolute Nucleated RBC 0.00 Nucleated RBC % 0.0 PT 15.6 H INR 1.4 H APTT 39.7 H Sodium 136 Potassium 4.1 Chloride 96 L Carbon Dioxide 28 Anion Gap 12.0 BUN 25 H Creatinine 0.9 Estimated GFR (MDRD) 61 L Glucose 314 H Lactic Acid Calcium 9.9 Magnesium 2.0 Total Bilirubin 0.6 AST 30 ALT 35 Alkaline Phosphatase 61 Total Creatine Kinase 60 Troponin I High Sens B-Natriuretic Peptide Total Protein 7.3 Albumin 4.8 Globulin 2.5 Albumin/Globulin Ratio 1.9 Lipase 37 Urine Color Urine Clarity Urine pH Ur Specific [place] Urine Protein Urine Glucose (UA) Urine Ketones Urine Occult Blood Urine Nitrite Urine Bilirubin Urine Urobilinogen Ur Leukocyte Esterase Ur Microscopic Review Urine Culture Comments 09/05/19 09/05/19 09/05/19 06:58 06:58 06:58 WBC RBC Hgb Hct MCV MCH MCHC RDW Plt Count MPV Neut # (Auto) Lymph # (Auto) [place] # (Auto) Eos # (Auto) Baso # (Auto) Absolute Nucleated RBC Nucleated RBC % PT INR APTT Sodium Potassium Chloride Carbon Dioxide Anion Gap BUN Creatinine Estimated GFR (MDRD) Glucose Lactic Acid 1.8 Calcium Magnesium Total Bilirubin AST ALT Alkaline Phosphatase Total Creatine Kinase Troponin I High Sens 27.5 H* B-Natriuretic Peptide 1079 H Total Protein Albumin Globulin Albumin/Globulin Ratio Lipase Urine Color Urine Clarity Urine pH Ur Specific [place] Urine Protein Urine Glucose (UA) Urine Ketones Urine Occult Blood Urine Nitrite Urine Bilirubin Urine Urobilinogen Ur Leukocyte Esterase Ur Microscopic Review Urine Culture Comments 09/05/19 09/05/19 07:28 09:05 WBC RBC Hgb Hct MCV MCH MCHC RDW Plt Count MPV Neut # (Auto) Lymph # (Auto) [place] # (Auto) Eos # (Auto) Baso # (Auto) Absolute Nucleated RBC Nucleated RBC % PT INR APTT Sodium Potassium Chloride Carbon Dioxide Anion Gap BUN Creatinine Estimated GFR (MDRD) Glucose Lactic Acid Calcium Magnesium Total Bilirubin AST ALT Alkaline Phosphatase Total Creatine Kinase Troponin I High Sens 28.9 H* B-Natriuretic Peptide Total Protein Albumin Globulin Albumin/Globulin Ratio Lipase Urine Color YELLOW Urine Clarity CLEAR Urine pH 6.0 Ur Specific [place] 1.015 Urine Protein NEGATIVE Urine Glucose (UA) 100 H Urine Ketones NEGATIVE Urine Occult Blood NEGATIVE Urine Nitrite NEGATIVE Urine Bilirubin NEGATIVE Urine Urobilinogen 0.2 (NORMAL) Ur Leukocyte Esterase NEGATIVE Ur Microscopic Review NOT INDICATED Urine Culture Comments NOT INDICATED - Rads (name of study) Single view chest x-ray Radiology: EMP read contemporaneously (Persistent cardiomegaly, no edema) PD MEDICAL DECISION MAKING - ED course ED course: `74-year-old woman presents with dyspnea and chest pressure likely due to rapid atrial fibrillation. Her port was accessed and she was administered IV beta- blockade and Lasix. She seems very mildly fluid overloaded. PE is considered, but given that she is finished up her cancer treatment and is therapeutically anticoagulated, very unlikely. After the beta-blockade her rate only improved a little bit and this was followed by a small amount of IV diltiazem with good rate control. A second troponin was done 2 hours after the first and was basically unchanged which is inconsistent with an ischemic acute issue. She had good diuresis in the department and we walked her in the bazan and she was basically asymptomatic with excellent pulse oximetry. She was still little tachycardic and was given a dose of oral diltiazem and discussed a as needed dosing of diltiazem pending follow-up and doubling her metformin for uncontrolled diabetes. Departure - Departure Disposition: 01 Home, Self Care Clinical Impression: Atrial fibrillation with RVR Congestive heart failure Qualifiers: Heart failure type: unspecified Heart failure chronicity: acute on chronic Qualified Code(s): I50.9 - Heart failure, unspecified Condition: Good Record reviewed to determine appropriate education?: Yes Instructions: Atrial Fibrillation Dc, ED Diet Low Salt 2Gm Prescriptions: diltiaZEM [Cardizem] 30 mg PO Q6H PRN #60 tablet PRN Reason: Tachycardia Comments: You were seen today for rapid atrial fibrillation and mild congestive heart failure. This seemed to improve with control of your heart rate And a small dose of diuretic. I am prescribing an as needed prescription for diltiazem. If your heart rate is over about 110 you can take it up to 3 times a day. Continue your other medications, but double your metformin to 1000 mg twice a day. 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 Return for any new or worsening symptoms.
[2019-09-05 07:18] LABS: INR 1.4 (0.8-1.2); PT - PROTHROMBIN TIME 15.6 secs (9.9-12.6)
[2019-09-05 07:21] LABS: ALBUMIN 4.8 g/dL (3.2-5.5); ALBUMIN/GLOBULIN RATIO 1.9 (1.0-2.2); BILIRUBIN,TOTAL 0.6 mg/dL (0.2-1.0); CALCIUM 9.9 mg/dL (8.5-10.3); CREATININE 0.9 mg/dL (0.4-1.0); TOTAL PROTEIN 7.3 g/dL (6.7-8.2)
[2019-09-05 07:25] LABS: PARTIAL THROMBOPLASTIN TIME 39.7 secs (24.9-33.3)
[2019-09-05 07:38] LABS: BILIRUBIN,URINE NEGATIVE (NEGATIVE); GLUCOSE, URINE (UA) 100 mg/dL (NEGATIVE); KETONES,URINE (UA) NEGATIVE (NEGATIVE); LEUKOCYTE ESTERASE, URINE NEGATIVE (NEGATIVE); NITRITE,URINE NEGATIVE (NEGATIVE); OCCULT BLOOD,URINE NEGATIVE (NEGATIVE); PROTEIN,URINE NEGATIVE (NEGATIVE); UROBILINOGEN,URINE 0.2 (NORMAL) E.U./dL (NORMAL)
[2019-09-05 07:40] LABS: CLARITY,URINE CLEAR (CLEAR)
[2019-09-05] MEDS ORDERED: INSULIN REGULAR HUMAN 100 UNIT/1 ML 10 ML MDV IVP STA (07:41)
[2019-09-05] MEDS ORDERED: DILTIAZEM 50 MG/10 ML VIAL IVP ONE (07:45)
--- NOTE | 2019-09-05 08:21 | XRAY Report ---
PROCEDURE: Chest 1 View X-Ray INDICATIONS: sob TECHNIQUE: One view of the chest was acquired. COMPARISON: Chest x-ray, 05/27/2019 FINDINGS: Surgical changes and devices: There is a Port-A-Cath on the left with the tip projecting to the area of SVC. Surgical clips in the left low neck, presumably for left hemithyroidectomy. Lungs and pleura: Interstitial prominence suggesting mild pulmonary congestion. No focal consolidati on. No pleural effusions or pneumothorax. Mediastinum: Mediastinal contours appear normal. Heart size is mildly increased. Bones and chest wall: No suspicious bony lesions. Overlying soft tissues appear unremarkable. IMPRESSION: Stable cardiomegaly. Mild CHF. Reviewed by: Linda Pace MD on 09/05/2019 8:20 AM PDT Approved by: Linda Pace MD on 09/05/2019 8:20 AM PDT Station ID: [id number]
[2019-09-05 10:06] VITALS: BP 127/90
[2019-09-05] MEDS ORDERED: diltiaZEM 30 MG TABLET PO STA (10:09)
== END 2019-09-05 10:36 | disposition home or self-care (01) ==
LOC: ED 06:33
DX: I48.20 Chronic atrial fibrillation, unspecified (principal); I11.0 Hypertensive heart disease with heart failure; I50.9 Heart failure, unspecified; Z79.01 Long term (current) use of anticoagulants; E11.9 Type 2 diabetes mellitus without complications; Z79.84 Long term (current) use of oral hypoglycemic drugs; I49.3 Ventricular premature depolarization; Z95.5 Presence of coronary angioplasty implant and graft
CPT/HCPCS: 36415; 71045; 80053; 81003; 82550; 83605; 83690; 83735; 83880; 84484; 85025; 85610; 85730; 93005; 96374; 96375; 99284; 99285; A9270; J1815; 81001; 87086

== ENCOUNTER 2019-09-29 13:35 | Outpatient (CLI) | payer MEDICARE, OTHER ==
--- NOTE | 2019-09-29 15:25 | XRAY Report ---
PROCEDURE: Toe(s) RT INDICATIONS: MULTIPLE INJURIES TO THE 3RD TOE R FOOT TECHNIQUE: 4 views of the right third toe(s) acquired. COMPARISON: None FINDINGS: No trauma found Bones: No fractures or dislocations. No suspicious bony lesions. Prominent soft tissue swelling ove r the third digit. Impression: Prominent soft tissue swelling over the third digit. No gas in the soft tissues found. No foreign body seen. Mild irregularity at the dorsal margin of the third distal inner phalangeal joint could represent trauma. It is unclear from the history if this is a circumstance of trauma or infect ion.. Reviewed by: Darnell Cameron MD on 09/29/2019 3:23 PM PDT Approved by: Darnell Cameron MD on 09/29/2019 3:23 PM PDT Station ID: [id number]
== END 2019-09-29 13:36 | disposition home or self-care (01) ==
LOC: DI 13:35
PROVIDERS: ATTEND Podiatrist
DX: R93.6 Abnormal findings on diagnostic imaging of limbs (principal)
CPT/HCPCS: 73660

== ENCOUNTER 2019-10-01 08:49 | Outpatient (CLI) | payer MEDICARE, OTHER ==
--- NOTE | 2019-10-04 09:20 | Mammography Report ---
BILATERAL DIGITAL SCREENING MAMMOGRAM 3D/2D: 10/01/2019 CLINICAL: Routine screening. Family history of breast cancer. Comparison is made to exams dated: 06/27/2018 mammogram, 06/01/2014 mammogram, and 04/09/2013 mammogram - [facility]. The tissue of both breasts is heterogeneously dense. This may lower the sensitivity of mammography. There are new grouped fine punctate round calcifications in the left breast at 1 o'clock posterior de pth. There also is a new oval equal density focal asymmetry with an indistinct and circumscribed margin in the left breast at 5 o'clock middle depth. No other significant masses, calcifications, or other findings are seen in either breast. IMPRESSION: INCOMPLETE: NEEDS ADDITIONAL IMAGING EVALUATION The new grouped fine punctate round calcifications in the left breast at 1 o'clock posterior depth ar e indeterminate. Additional views are recommended. The new oval equal density focal asymmetry in the left breast at 5 o'clock middle depth is indetermin ate. Mediolateral and spot compression views as well as additional views with possible ultrasound ar e recommended. This exam was interpreted at Station ID: [id number]. NOTE: For mammograms, a report in lay terms will be sent to the patient. Approximately 15% of breast malignancies will not be visualized mammographically. In the management of a palpable breast mass, a negative mammogram must not discourage biopsy of a clinically suspicious lesion. Electronically Signed By: Hugh hoyos/bhumika:10/01/2019 11:56:04 ACR BI-RADS Category 0: Incomplete 3340F PARENCHYMAL PATTERN: (D) - The breast(s) demonstrate(s) heterogeneously dense fibroglandular rhea adams. BI-RADS CATEGORY: (0) - 0 Mammo and [place] [id number] Immediate follow-up LATERALITY: (B)
== END 2019-10-01 08:50 | disposition home or self-care (01) ==
LOC: DI 08:49
DX: Z12.31 Encounter for screening mammogram for malignant neoplasm of breast (principal); Z80.3 Family history of malignant neoplasm of breast; R92.8 Other abnormal and inconclusive findings on diagnostic imaging of breast
CPT/HCPCS: 77063; 77067

== ENCOUNTER 2019-10-19 08:00 | Outpatient (CLI) | payer MEDICARE, OTHER ==
--- NOTE | 2019-10-20 10:59 | Ultrasound Report ---
ULTRASOUND OF RIGHT AXILLA: 10/19/2019 CLINICAL: Palpable right axilla lump. Comparison is made to exams dated: 10/19/2019 mammogram and 10/01/2019 mammogram - [facility]. Ultrasound of the right axilla was performed. There is a 1.8 cm x 3 cm x 1.4 cm oval mass with a circumscribed margin in the right axilla. This ov al mass is hyperechoic. This correlates as palpated. IMPRESSION: SUSPICIOUS OF MALIGNANCY The 1.8 cm x 3 cm x 1.4 cm oval mass has a differential diagnosis of a lipoma and is at a low suspici on for malignancy. An ultrasound guided biopsy is recommended. The findings and recommendations wer e discussed with the patient by the on-site radiologist, Dr. Alberto, at the time of the examination. This exam was interpreted at Station ID: [id number]. SUMMARY: 1. The new segmental calcifications in the left breast at 2 o'clock posterior depth seen on mammograp hy only have an intermediate suspicion for malignancy, and stereotactic biopsy is recommended for fur ther evaluation. 2. No abnormality is seen in the left breast at 5 o'clock middle depth by mammogram or ultrasound to correspond to the abnormality seen on prior screening mammogram from 10/01/2019, presumably representi ng superimposed breast tissue on the prior exam. 3. The palpable abnormality in the right axilla corresponds to a 3 cm hyperechoic mass, which has a l ow suspicion for malignancy. Ultrasound-guided biopsy of the right axillary mass is recommended. Electronically Signed By: Rj david/bhumika:10/19/2019 12:58:52 Ultrasound BI-RADS: 4a Low suspicion for malignancy BI-RADS CATEGORY: (4a) - Low Susp None [id number] Immediate follow-up LATERALITY: ()
--- NOTE | 2019-10-20 10:59 | Ultrasound Report ---
LIMITED ULTRASOUND OF LEFT BREAST: 10/19/2019 CLINICAL: Patient returns today to evaluate asymmetry in left breast. Comparison is made to exams dated: 10/19/2019 mammogram and 10/01/2019 mammogram - [facility]. Ultrasound of the left breast 3-5 o'clock region was performed. No significant abnormalities were seen sonographically in the left breast. IMPRESSION: NEGATIVE There is no sonographic evidence of malignancy. There is no abnormality seen in the left breast to correspond with the mammography finding at 5 o'barbara ck in the middle depth. This exam was interpreted at Station ID: [id number]. SUMMARY: 1. The new segmental calcifications in the left breast at 2 o'clock posterior depth seen on mammograp hy only have an intermediate suspicion for malignancy, and stereotactic biopsy is recommended for fur ther evaluation. 2. No abnormality is seen in the left breast at 5 o'clock middle depth by mammogram or ultrasound to correspond to the abnormality seen on prior screening mammogram from 10/01/2019, presumably representi ng superimposed breast tissue on the prior exam. 3. The palpable abnormality in the right axilla without mammographic corelate will be further evaluat ed sonographically following this exam. Electronically Signed By: Rj david/bhumika:10/19/2019 12:50:18 Ultrasound BI-RADS: 1 Negative BI-RADS CATEGORY: (1) - 1 Unspecified - other recall n/a LATERALITY: (B)
--- NOTE | 2019-10-20 10:59 | Mammography Report ---
BILATERAL DIGITAL DIAGNOSTIC MAMMOGRAM 3D/2D: 10/19/2019 CLINICAL: Patient returns for magnifcation views of microcalcifications in the left breast and right axilla mass. Comparison is made to exams dated: 10/01/2019 mammogram, 06/27/2018 mammogram, 06/01/2014 mammogram, an d 04/09/2013 mammogram - [facility]. The tissue of both breasts is heterogeneously dense. This may lower the sensitivity of mammography. There are new segmental coarse heterogeneous punctate calcifications in the left breast at 2 o'clock posterior depth. No other significant masses, calcifications, or other findings are seen in either breast. IMPRESSION: SUSPICIOUS OF MALIGNANCY The new segmental coarse heterogeneous punctate calcifications in the left breast are at a moderate s uspicion for malignancy. A stereotactic biopsy is recommended. Findings and recommendations were di scussed with the patient by the onsite radiologist, Dr. Alberto, at the time of the exam. There is no abnormality seen in the left breast to correspond with the mammography finding at 5 o'barbara ck in the middle depth, however, ultrasound is recommended. There is no abnormality seen in the righ t axilla to correspond with the palpable abnormality in the right axilla, however, ultrasound is ang mmended. Bilateral targeted ultrasound is recommended for further evaluation, which will be performe d on the same day immediately following this exam. This exam was interpreted at Station ID: [id number]. NOTE: For mammograms, a report in lay terms will be sent to the patient. Approximately 15% of breast malignancies will not be visualized mammographically. In the management of a palpable breast mass, a negative mammogram must not discourage biopsy of a clinically suspicious lesion. SUMMARY: 1. The new segmental calcifications in the left breast at 2 o'clock posterior depth seen on mammograp hy have a moderate suspicion for malignancy, and stereotactic biopsy is recommended for further evalu ation. 2. No abnormality is seen in the left breast at 5 o'clock middle depth by mammogram to correspond to the abnormality seen on prior screening mammogram from 10/01/2019, presumably representing superimpose d breast tissue on the prior exam. However, ultrasound of the area will be performed for further eval uation. 3. No mammographic abnormality is seen corresponding to the palbable abnormality in the right axilla. Ultrasound will be performed for further evaluation. Electronically Signed By: Rj david/bhumika:10/19/2019 12:48:19 ACR BI-RADS Category 4b: Suspicious abnormality - intermediate suspicion of malignancy 3344F PARENCHYMAL PATTERN: (D) - The breast(s) demonstrate(s) heterogeneously dense fibroglandular parobiy bryan. BI-RADS CATEGORY: (4b) - Mod Susp None [id number] Immediate follow-up LATERALITY: ()
== END 2019-10-19 08:01 | disposition home or self-care (01) ==
LOC: DI 08:00
PROVIDERS: ATTEND Nurse Practitioner Family
DX: R22.31 Localized swelling, mass and lump, right upper limb (principal); N63.13 Unspecified lump in the right breast, lower outer quadrant; N63.11 Unspecified lump in the right breast, upper outer quadrant; R92.1 Mammographic calcification found on diagnostic imaging of breast
CPT/HCPCS: 76642; 77066

== ENCOUNTER 2019-11-04 08:25 | Outpatient (CLI) | payer MEDICARE, OTHER ==
[2019-11-04] MEDS ORDERED: BUFFERED LIDOCAINE 10 ML SYRINGE ONE ×2 (08:52→09:39)
[2019-11-04] MEDS ORDERED: BUFFERED LIDOCAINE 10 ML SYRINGE IU ONE (10:06)
[2019-11-04] MEDS ORDERED: BUPIVACAINE 0.5%-EPI 1:200000 PF 30 ML VIAL SUBQ ONE (10:07)
--- NOTE | 2019-11-10 11:38 | Mammography Report ---
DIGITAL TOMOGRAPHIC MAMMOGRAPHY GUIDED STEREOTACTIC GUIDED BIOPSY LEFT BREAST USING VACUUM DEVICE WIT H MARKING DEVICE INSERTED AND POST MAMMOGRAPHIC IMAGING AND RADIOGRAPHIC SPECIMEN IMAGIN11/04/2019 CLINICAL: Microcalcifications right breast. Correlation is made to exams dated: 10/01/2019 mammogram, 06/27/2018 mammogram, 06/01/2014 mammogram, a nd 04/09/2013 mammogram - [facility]. A stereotactic guided biopsy was performed for the area of grouped and segmental fine calcifications located in the left breast at 1 o'clock middle depth. This was described on the previous mammography report. The skin was prepped in the usual manner. Local anesthetic was administered to the access site. A skin kenya was made in the breast. The abnormality was approached from the craniocaudal aspe ct using an upright digital tomographic mammography unit. A 9 gauge biopsy needle was placed adjacen t to the abnormality under computer guidance and confirmatory stereotactic mammography images were ob tained to document needle placement. Once the needle was documented to be in the correct location, a specimen was obtained using a vacuum assisted device. A clip was inserted into the biopsy cavity. A skin closure strip and a sterile dressing were applied to the access site. [facility] demonstrates the location device at the targeted area. The specimen was sent to the lab oratory for pathological analysis. IMPRESSION: STEREOTACTIC GUIDED BIOPSY BENIGN Stereotactic guided biopsy of the area of grouped and segmental fine calcifications in the left breas t at 1 o'clock middle depth was successful with no apparent post procedure complications. The imaged specimen includes the calcifications. Pathology indicates benign fat necrosis (FN), fibrocystic matty nges (FC), and dystrophic calcification. Pathology results are concordant with imaging findings. Return to annual screening schedule is recommended. This exam was interpreted at Station ID: [id number]. Mina Stewart M.D., jr/bhumika:11/05/2019 15:33:21 BI-RADS CATEGORY: () - Unspecified - other [id number] return to screening LATERALITY: (B)
--- NOTE | 2019-11-10 11:38 | Ultrasound Report ---
ULTRASOUND GUIDED BIOPSY RIGHT BREAST WITH POST DIGITAL MAMMOGRAPHIC IMAGIN11/04/2019 CLINICAL: Right axillary mass biopsy. PATIENT CONSENT: Risks (minor bleeding, infection, vasovagal reaction and repeat procedure), benefits and alternatives were explained to the patient and written informed consent was obtained. Correlation is made to exams dated: 10/19/2019 ultrasound, 10/19/2019 mammogram, 10/01/2019 mammogram, mammogram, 06/01/2014 mammogram, and 04/09/2013 mammogram - [facility]. An ultrasound guided biopsy using real-time ultrasound was performed for the irregular shaped mass lo cated in the right axillary tail. This was described on the previous ultrasound report. The skin wa s prepped in the usual manner. Local anesthetic was administered to the access site. A skin kenya wa s made in the breast. The abnormality was approached from the lateral aspect. A 12 gauge biopsy nee dle was placed adjacent to the abnormality under ultrasound guidance. Once the needle was documented to be in the correct location, three specimens were obtained using an Achieve automated firing devic e. A skin closure strip and a sterile dressing were applied to the access site. Post procedure digi cindi mammographic imaging demonstrates the clip at the targeted area and partial removal of the abnorm ality. The specimens were sent to the laboratory for pathological analysis. IMPRESSION: ULTRASOUND GUIDED BIOPSY BENIGN Ultrasound guided biopsy of the mass in the right axillary tail was successful with no complications. Pathology indicates benign fat necrosis (FN), fibrosis, and chronic inflammation. Pathology result s are concordant with imaging findings. Return to annual screening schedule is recommended. This exam was interpreted at Station ID: [id number]. Mina Stewart M.D. jr/:11/10/2019 11:26:08 BI-RADS CATEGORY: () - Unspecified - other [id number] return to screening LATERALITY: (B)
== END 2019-11-04 08:26 | disposition home or self-care (01) ==
LOC: DI 08:25
PROVIDERS: ATTEND Nurse Practitioner Family
DX: N60.31 Fibrosclerosis of right breast (principal); N64.1 Fat necrosis of breast; N61.0 Mastitis without abscess; R92.1 Mammographic calcification found on diagnostic imaging of breast
CPT/HCPCS: 19081; 19083

== ENCOUNTER 2020-01-17 20:38 | Outpatient (CLI) | payer MEDICARE | END 2020-01-17 20:39 | disposition short-term general hospital (02) | LOC: EMS 20:38 | PROVIDERS: ATTEND Surgery | DX: R53.1 Weakness (principal); R42 Dizziness and giddiness; R61 Generalized hyperhidrosis | CPT/HCPCS: A0425; A0427 ==

== ENCOUNTER 2020-01-26 09:50 | Emergency (ER) | payer MEDICARE, OTHER ==
[2020-01-26] MEDS ORDERED: SODIUM CHLORIDE 0.9% 1,000 ML IV STA (11:03)
--- NOTE | 2020-01-26 11:05 | ED Physician Documentation ---
History of Present Illness - Stated complaint Stated Complaint: LOW BP - Chief complaint Chief Complaint: General - History obtained from History obtained from: Patient, Family - History of Present Illness Timing: Today - Additonal information Additional information: 74-year-old female with stage IV B-cell lymphoma and recent GI bleed on Eliquis was at the oncologist office this morning preparing for her visit when her blood pressure systolic was 70 she was sent to the emergency department for evaluation. She has a history of congestive heart failure and a recent transfusion. She has not specifically short of breath but she has been deconditioned with being in bed for the past week in the hospital and she has not been up and about much. She has had 3 loose stools recently and these were all dark. She is sent here from the [facility] clinic with a low blood pressure. Review of Systems Constitutional: denies: Fever Eyes: denies: Decreased vision Ears: denies: Ear pain Nose: denies: Congestion Throat: denies: Sore throat Cardiac: denies: Chest pain / pressure, Palpitations Respiratory: denies: Dyspnea, Cough GI: reports: Diarrhea, Bloody / black stool. denies: Abdominal Pain, Vomiting : denies: Dysuria Skin: denies: Rash Musculoskeletal: denies: Neck pain, Back pain, Extremity pain PD PAST MEDICAL HISTORY - Past Medical History Past Medical History: Yes Cardiovascular: Congestive heart failure, Hypertension, Deep vein thrombosis, Atrial fibrillation, Valve disorder Respiratory: None Neuro: None Endocrine/Autoimmune: Type 2 diabetes GI: Ulcers NYLON WINDER: None : None HEENT: None Psych: Anxiety Musculoskeletal: Fatigue, Chronic back pain Derm: Rosacea Other Past Medical History: non-hod large B-cell lymphoma - Past Surgical History Past Surgical History: Yes General: Cholecystectomy, Splenectomy /NYLON WINDER: section, Hysterectomy, Oophrectomy, Other - Present Medications Home Medications: Ambulatory Orders Medication Instructions Recorded Confirmed Apixaban [Eliquis] 5 mg PO BID 09/08/19 01/26/20 Furosemide 40 mg PO DAILY 09/08/19 01/26/20 Metoprolol Succinate [Toprol Xl] 100 mg PO BID 09/08/19 01/26/20 Spironolactone [Aldactone] 12.5 mg PO DAILY 09/08/19 01/26/20 metFORMIN [Glucophage] 1,000 mg PO BID 09/08/19 01/26/20 Magnesium 500 mg PO DAILY 12/01/19 01/26/20 Multivitamin/Iron/Folic Acid 1 tab PO DAILY 12/01/19 01/26/20 [Centrum Women Tablet] Potassium Chloride [Micro-K] 10 meq PO DAILY 12/01/19 01/26/20 Hydrocodone/Acetaminophen [[place] 1 each PO Q4HR PRN 01/26/20 01/26/20 5-325 Tablet] Lidocaine Patch 5% [Lidoderm Patch] 1 patch TOP DAILY 01/26/20 01/26/20 Losartan Potassium 12.5 mg PO DAILY 01/26/20 01/26/20 Pantoprazole Sodium 40 mg PO BID 01/26/20 01/26/20 Sucralfate [Carafate] 1 gm PO QID 01/26/20 01/26/20 dilTIAZem HCL [Diltiazem 24Hr ER 180 mg PO BID 01/26/20 01/26/20 (Xr)] hydrOXYzine PAMOATE [Vistaril] 25 mg PO Q6H PRN 01/26/20 01/26/20 - Allergies Allergies/Adverse Reactions: Allergies Allergy/AdvReac Type Severity Reaction Status Date / Time Sulfa (Sulfonamide Allergy Rash Verified 01/26/20 10:18 Antibiotics) - Social History Does the pt smoke?: No Smoking Status: Never smoker Does the pt drink ETOH?: No Does the pt have substance abuse?: No - Immunizations Immunizations are current?: Yes - POLST Patient has POLST: No PD ED PE NORMAL - Vitals Vital signs reviewed: Yes (wide pulse pressure ) - General General: Alert and oriented X 3, No acute distress, Well developed/nourished - HEENT HEENT: Atraumatic, PERRL, EOMI - Neck Neck: Supple, no meningeal sign - Cardiac Cardiac: No murmur, Other (Irregular rate and rhythm) - Respiratory Respiratory: No respiratory distress, Clear bilaterally - Abdomen Abdomen: Soft, Non tender - Back Back: No CVA TTP, No spinal TTP - Derm Derm: Normal color, Warm and dry, Other (pale appearing ) - Extremities Extremities: No deformity - Neuro Neuro: Alert and oriented X 3, handling tech 2-12 intact, No motor deficit, No sensory deficit, Normal speech Eye Opening: Spontaneous Motor: Obeys Commands Verbal: Oriented GCS Score: 15 - Psych Psych: Normal mood, Normal affect Results - Vitals Vitals: Vital Signs - 24 hr 01/26/20 01/26/20 01/26/20 10:00 10:38 11:30 Temperature 36.6 C 36.7 C Heart Rate 67 72 73 Respiratory 22 18 19 Rate Blood Pressure 102/54 L 105/57 L 91/60 O2 Saturation 92 97 94 01/26/20 01/26/20 01/26/20 12:48 13:00 13:57 Temperature 37.1 C 36.7 C 37 C Heart Rate 69 77 82 Respiratory 20 16 16 Rate Blood Pressure 93/54 L 137/61 H 126/60 O2 Saturation 95 95 94 Oxygen O2 Source Room air - Labs Labs: Laboratory Tests 01/26/20 01/26/20 01/26/20 11:30 11:30 11:30 WBC 12.8 H RBC 3.03 L Hgb 9.1 L Hct 28.9 L MCV 95.4 MCH 30.0 MCHC 31.5 L RDW 14.7 Plt Count 762 H MPV 8.9 Neut # (Auto) 10.8 H Lymph # (Auto) 0.7 L [place] # (Auto) 1.0 Eos # (Auto) 0.1 Baso # (Auto) 0.1 Absolute Nucleated RBC 0.11 Nucleated RBC % 0.9 Sodium 138 Potassium 3.4 L Chloride 92 L Carbon Dioxide 29 Anion Gap 17.0 H BUN 16 Creatinine 0.8 Estimated GFR (MDRD) 70 L Glucose 217 H Lactic Acid Calcium 9.2 Total Bilirubin 0.4 AST 23 ALT 24 Alkaline Phosphatase 135 H B-Natriuretic Peptide 939 H Total Protein 6.2 L Albumin 2.9 L Globulin 3.3 Albumin/Globulin Ratio 0.9 L Lipase 25 Urine Color Urine Clarity Urine pH Ur Specific [place] Urine Protein Urine Glucose (UA) Urine Ketones Urine Occult Blood Urine Nitrite Urine Bilirubin Urine Urobilinogen Ur Leukocyte Esterase Urine RBC Urine WBC Ur Squamous Epith Cells Urine Bacteria Urine Casts Ur Microscopic Review Urine Culture Comments Blood Type Blood Type Recheck Antibody Screen 01/26/20 01/26/20 01/26/20 11:30 11:30 12:06 WBC RBC Hgb Hct MCV MCH MCHC RDW Plt Count MPV Neut # (Auto) Lymph # (Auto) [place] # (Auto) Eos # (Auto) Baso # (Auto) Absolute Nucleated RBC Nucleated RBC % Sodium Potassium Chloride Carbon Dioxide Anion Gap BUN Creatinine Estimated GFR (MDRD) Glucose Lactic Acid 2.6 H Calcium Total Bilirubin AST ALT Alkaline Phosphatase B-Natriuretic Peptide Total Protein Albumin Globulin Albumin/Globulin Ratio Lipase Urine Color Urine Clarity Urine pH Ur Specific [place] Urine Protein Urine Glucose (UA) Urine Ketones Urine Occult Blood Urine Nitrite Urine Bilirubin Urine Urobilinogen Ur Leukocyte Esterase Urine RBC Urine WBC Ur Squamous Epith Cells Urine Bacteria Urine Casts Ur Microscopic Review Urine Culture Comments Blood Type A NEGATIVE Blood Type Recheck A NEGATIVE Antibody Screen NEGATIVE 01/26/20 12:15 WBC RBC Hgb Hct MCV MCH MCHC RDW Plt Count MPV Neut # (Auto) Lymph # (Auto) [place] # (Auto) Eos # (Auto) Baso # (Auto) Absolute Nucleated RBC Nucleated RBC % Sodium Potassium Chloride Carbon Dioxide Anion Gap BUN Creatinine Estimated GFR (MDRD) Glucose Lactic Acid Calcium Total Bilirubin AST ALT Alkaline Phosphatase B-Natriuretic Peptide Total Protein Albumin Globulin Albumin/Globulin Ratio Lipase Urine Color DARK YELLOW Urine Clarity CLEAR Urine pH 5.0 Ur Specific [place] >=1.030 H Urine Protein TRACE Urine Glucose (UA) NEGATIVE Urine Ketones TRACE Urine Occult Blood MODERATE H Urine Nitrite NEGATIVE Urine Bilirubin NEGATIVE Urine Urobilinogen 0.2 (NORMAL) Ur Leukocyte Esterase NEGATIVE Urine RBC 0-5 Urine WBC 4-5 Ur Squamous Epith Cells MOD Squamous H Urine Bacteria Moderate H Urine Casts 0-2 Hyaline Casts Ur Microscopic Review INDICATED Urine Culture Comments NOT INDICATED Blood Type Blood Type Recheck Antibody Screen PD MEDICAL DECISION MAKING - ED course Complexity details: reviewed old records, reviewed results, re-evaluated patient, considered differential, d/w patient, d/w family ED course: 74-year-old female sent to the [facility] for hypotension after a GI bleed is found to be dehydrated on interrogation the inferior vena cava and she is administered intravenous saline. She has a history of aortic stenosis and she is on 3 medications for blood pressure. She is on metoprolol 100 twice daily, Cozaar 25 mg daily and she has recently been started on diltiazem 90 mg twice daily. Her blood counts appear stable and not in the transfusion range. Dr. Joya his contacted keyboard action assembler for Dr. [place] and he recommends reducing the dose of diltiazem to 90 once per day and if rate control is a problem consider digoxin. Her pressure normalizes and she wants to go home. We were able to get her last blood counts from [facility] and they were 24.2 and 8. Today they are28.9 and 9.1. Departure - Departure Disposition: 01 Home, Self Care Clinical Impression: Dehydration Hypotension Qualifiers: Hypotension type: hypotension due to hypovolemia Qualified Code(s): I95.89 - Other hypotension Condition: Stable Instructions: ED Dehydration Follow-Up: Fredy Hagen MD [Primary Care Provider] - Comments: Today it appears your blood pressure was low with a reduced volume (dehydrated) and new medication (Diltiazem). I have contacted the keyboard action assembler cloth worker for Dr. Poe (Dr. Turner) and he recommends reduction of the Diltiazem to once per day. Discharge Date/Time: 01/26/20 14:22
[2020-01-26 11:42] LABS: BASOPHILS # (AUTO) 0.1 10^3/uL (0.0-0.1); BASOPHILS % (AUTO) 0.4 %; EOSINOPHILS # (AUTO) 0.1 10^3/uL (0.0-0.7); EOSINOPHILS % (AUTO) 0.9 %; HGB - HEMOGLOBIN 9.1 g/dL (12.0-16.0); LYMPHOCYTES # (AUTO) 0.7 10^3/uL (1.5-3.5); LYMPHOCYTES % (AUTO) 5.1 %; MEAN CORPUSCULAR HGB CONC 31.5 g/dL (32.0-36.0); MEAN CORPUSCULAR VOLUME 95.4 fL (81.0-99.0); MEAN PLATELET VOLUME 8.9 fL (7.9-10.8); MONOCYTES % (AUTO) 7.8 %; NEUTROPHILS # (AUTO) 10.8 10^3/uL (1.5-6.6); NEUTROPHILS % (AUTO) 84.5 %; PLT - PLATELET COUNT 762 10^3/uL (130-450); RED BLOOD COUNT 3.03 10^6/uL (4.20-5.40); RED CELL DISTRIBUTION WIDTH 14.7 % (12.0-15.0); WHITE BLOOD COUNT 12.8 x10^3/uL (4.8-10.8)
[2020-01-26 11:55] LABS: ALBUMIN 2.9 g/dL (3.2-5.5); ALBUMIN/GLOBULIN RATIO 0.9 (1.0-2.2); BILIRUBIN,TOTAL 0.4 mg/dL (0.2-1.0); CALCIUM 9.2 mg/dL (8.5-10.3); CREATININE 0.8 mg/dL (0.4-1.0); TOTAL PROTEIN 6.2 g/dL (6.7-8.2)
[2020-01-26 12:28] LABS: BILIRUBIN,URINE NEGATIVE (NEGATIVE); GLUCOSE, URINE (UA) NEGATIVE (NEGATIVE); KETONES,URINE (UA) TRACE mg/dL (NEGATIVE); LEUKOCYTE ESTERASE, URINE NEGATIVE (NEGATIVE); NITRITE,URINE NEGATIVE (NEGATIVE); OCCULT BLOOD,URINE MODERATE (NEGATIVE); PROTEIN,URINE TRACE mg/dL (NEGATIVE); UROBILINOGEN,URINE 0.2 (NORMAL) E.U./dL (NORMAL)
[2020-01-26 12:30] LABS: CLARITY,URINE CLEAR (CLEAR)
[2020-01-26 12:41] LABS: BACTERIA,URINE Moderate /HPF (None Seen); RBC,URINE 0-5 /HPF (0-5); SQUAMOUS EPITHELIAL CELL,UR MOD Squamous (<= Few)
[2020-01-26 12:42] LABS: CASTS, URINE 0-2 Hyaline Casts /LPF
[2020-01-26 13:57] VITALS: BP 126/60
== END 2020-01-26 14:22 | disposition home or self-care (01) ==
LOC: ED 09:50
DX: E86.0 Dehydration (principal); I95.9 Hypotension, unspecified; C83.30 Diffuse large B-cell lymphoma, unspecified site; I11.0 Hypertensive heart disease with heart failure; I50.9 Heart failure, unspecified; I48.91 Unspecified atrial fibrillation; E11.9 Type 2 diabetes mellitus without complications; Z79.84 Long term (current) use of oral hypoglycemic drugs; Z79.01 Long term (current) use of anticoagulants
CPT/HCPCS: 36415; 80053; 81001; 81003; 83605; 83690; 83880; 85025; 86850; 86900; 86901; 87040; 87086; 96360; 96361; 99284

== ENCOUNTER 2020-01-27 16:00 | Outpatient (CLI) | payer MEDICARE, OTHER ==
--- NOTE | 2020-01-27 21:44 | CONSULTATION NOTE ---
Palliative Care Consultation - Referral Referring Provider: Dr. Fredy Hagen Time of Visit: 7115-4016 Referral setting: Home - Information Sources Records reviewed: Previous records reviewed History/Review of Systems obtained from: Patient, Family (daughter Diana SPANN) Exam limitations: Clinical condition (patient easily anxious) - History of Present Illness Brief History of Present Illness: This 74-year-old woman who presented with diffuse non-Hodgkin's lymphoma large B cell, diagnosed in October 2018 when she was visiting her sisters in [place]. She had presented with acute splenic hemorrhage, s/p splenectomy, and bilateral DVTs, requiring treatment with IVC filter.She was supported by her sisters down there, she had received R-CHOP, but also experienced complications of atrial fib, and heart failure.She completed her treatment in April 2019, was found to be in remission on scan. However she had recurrent symptoms, and noted right groin lymphadenopathy, underwent a biopsy on 01/04/2020. This is gone fairly quickly, unfortunately, most recently presented with a GI bleed acutely, with admission at [facility] from /11/2019.She was found to have atypical gastric ulcers, that were clipped with most likely concern for metastatic disease in the setting of her diffuse B-cell lymphoma. She received treatment for her gastric ulcers, including pantoprazole, Carafate, and was resumed on her apixaban with stable H&H at hospital. She did see Dr. Bowden during her hospitalization at [facility], had declined initiation of treatment at that point in time. She saw him in consult yesterday, given patient's rapid functional decline, underlying severe cardiac disease and complications in the setting of aortic valve stenosis cardiomyopathy, heart failure, and atrial fib concern about patient's ability to tolerate treatment or further intervention treatment has been deferred. Patient did need to be transferred to the ED during this time, is related to severe hypotension. Her prefitter was contacted, with change in the diltiazem down to 90 mg. This change of events has happened fairly quickly, family does recognize patient's impending decline. Patient wants to "stay positive". But is mostly bedbound at this point, weak, having severe pain across mid thoracic back area, needing aggressive pain management. Remains at high risk for recurrent bleeding, and has underlying fragile cardiac status. They do have a pending telemedicine visit with [facility] tomorrow at 10:30. Before they make any final decisions, i.e. transitioning to hospice and supportive care, they would like to see if she has any nontoxic or further options. In speaking with daughter Diana, she seems to understand patient's fragile status, and most likely not able to tolerate any treatment. Patient does express goals of wanting to spend time with family, and would like to be at home. Patient has severe anxiety, both patient and daughter report this is been fairly consistent through her treatments. She defers to Diana for decision making, patient's has multiple health problems, she would like Diana to take this role at this time as her DPOA. Medical/Surgical History - Past Medical History Cardiovascular: reports: Congestive heart failure, Hypertension, Deep vein thrombosis, Atrial fibrillation, Valve disorder (aortic stenosis) Respiratory: reports: Shortness of breath Neuro: None Endocrine/Autoimmune: reports: Type 2 diabetes GI: reports: GI bleed, Ulcers MOBILE HOME SET UP PERSON: reports: None : reports: None HEENT: reports: None Psych: reports: Anxiety Musculoskeletal: reports: Fatigue, Chronic back pain Derm: reports: Rosacea MRSA Hx?: No - Past Surgical History General: reports: Cholecystectomy, Splenectomy /MOBILE HOME SET UP PERSON: reports: section, Hysterectomy, Oophrectomy, Other Cardiovascular: reports: Other (portacath) - Substance History Use: Uses substance without health or social issues: NONE Social History - Living Situation Living arrangement: At home Living Situation: With spouse/s.o. Support System: Patient moved up from [place] in 2012 to be closer to her children. She does have 2 daughters, one including Diana who has medical experience and has been a social insurance specialist. Her spouse has significant number of health problems himself, he is a disabled . It has been challenging for him to the sister with medications and her increasing care needs. He himself is quite frail. He is presently not available, have meeting with Diana and patient. They have been 36 years, she does have stepchildren as well and grandchildren. Her luciano is what has supported her through this process, she reports she has "good conversations with God", and likes things to be quite simple. This of course is challenging in the context of her worsening and declining health status. 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 Family History - Family History Family History: Mother: , CAD ( age 94 bowel obstruction), COPD/Emphysema ( of multiple comorbidites age 84), Father: , CAD, Sister: Alive and Well (has two sisters; one with breast ca and recent strokes), Cancer, Hypertension Medications/Allergies - Medications Home Medications: Ambulatory Orders Medication Instructions Recorded Confirmed Apixaban [Eliquis] 5 mg PO BID 09/08/19 01/27/20 Furosemide 40 mg PO DAILY 09/08/19 01/27/20 Metoprolol Succinate [Toprol Xl] 100 mg PO BID 09/08/19 01/27/20 Spironolactone [Aldactone] 12.5 mg PO DAILY 09/08/19 01/27/20 metFORMIN [Glucophage] 1,000 mg PO BID 09/08/19 01/27/20 Magnesium 500 mg PO DAILY 12/01/19 01/27/20 Multivitamin/Iron/Folic Acid 1 tab PO DAILY 12/01/19 01/27/20 [Centrum Women Tablet] Potassium Chloride [Micro-K] 10 meq PO DAILY 12/01/19 01/27/20 Hydrocodone/Acetaminophen [[place] 1 - 2 each PO Q4HR PRN 01/26/20 01/27/20 5-325 Tablet] Lidocaine Patch 5% [Lidoderm Patch] 1 patch TOP DAILY 01/26/20 01/27/20 Losartan Potassium 12.5 mg PO DAILY 01/26/20 01/27/20 Pantoprazole Sodium 40 mg PO BID 01/26/20 01/27/20 Sucralfate [Carafate] 1 gm PO QID 01/26/20 01/27/20 dilTIAZem HCL [Diltiazem 24Hr ER 90 mg PO DAILY 01/26/20 01/27/20 (Xr)] ALPRAZolam [Alprazolam] 0.5 mg PO Q6HR PRN 01/27/20 01/27/20 fentaNYL 12 MCG PATCH [Duragesic 12 mcg TOP .Q72 HOURS 01/27/20 01/27/20 12mcg patch] - Allergies Allergies/Adverse Reactions: Allergies Allergy/AdvReac Type Severity Reaction Status Date / Time Sulfa (Sulfonamide Allergy Rash Verified 01/26/20 10:18 Antibiotics) Review of Systems - Constitutional Constitutional: reports: Fatigue (worsening), Weakness (mostly bedbound), Poor appetite, Night sweats, Weight loss. denies: Fever - Eyes Eyes: reports: Vision loss - Ears, Nose & Throat Ears, Nose & Throat: reports: Hearing loss, Dry mouth - Cardiovascular Cardiovascular: reports: Palpitations, Lightheadedness, Exertional dyspnea, Decr. exercise tolerance. denies: Chest pain - Respiratory Respiratory: reports: Wheezing, SOB at rest, SOB with exertion - Gastrointestinal Gastrointestinal: reports: Diarrhea (loose dark stool this am;), Poor appetite, Early satiety. denies: Nausea, Vomiting - Genitourinary Genitourinary: reports: Incontinence - Musculoskeletal Musculoskeletal: reports: Back pain, Stiffness, Limited range of motion, Muscle weakness - Integumentary Integumentary: reports: Dryness, Other (right axilla wound) - Neurological Neurological: reports: General weakness, Numbness, Memory problems - Psychiatric Psychiatric: reports: Depression, Anxiety - Endocrine Endocrine: reports: Diabetes type 2 - Hematologic/Lymphatic Hematologic/Lymph: Anemia, Blood clots, Recurrent infections (recent hosp for sepsis) - All Other Systems All Other Systems: reports: Reviewed and negative Physical Exam - Vital Signs Temperature: 96.9 C Pulse Rate: 68 Respiratory Rate: 16 O2 Saturation: 95 (ra @ rest) Blood Pressure: 102/58 - Physical Exam General Appearance: positive: Mild distress (related to pain), Anxious Eyes Bilateral: positive: Normal inspection ENT: positive: No signs of dehydration Neck: positive: Trachea midline Cardiovascular: positive: Irregularly irregular Respiratory: positive: No respiratory distress. negative: Wheezes, Rales, Rhonchi Abdomen: positive: Non-tender, Soft, Nml bowel sounds Skin: positive: Pallor, Wound (Patient has an open wound of her right axillary region, had been receiving wound care support at the [facility]. With treatment at [facility] with AB, appears to have improved. Concern may be malignant in etiology. Wound bed clean, clear drainage.) Extremities: positive: No pedal edema Neurologic/Psychiatric: positive: Disoriented to time, Weakness, Other (anxious but relaxed as pain pills "kicked" in.) Palliative Care - POLST Patient has POLST: Yes POLST Status: DNR, Selective Treatment (Completed POLST at time of visit) Pain: Pain worsening, Location (Back thoracic area; wide band. Has not been taking pain medications consistently, though has had 4-5 in 24 hours, with only moderate relief. Does describe pain as unbearable, did get to hydrocodone prior to my visit.), Severity (8/10) Tiredness/Fatigue: Severe (7-10) Drowsiness/Sedation: Mild (1-3) Nausea: None Anorexia: Moderate (4-6), Weight loss Dyspnea: Mild (1-3) Depression: Mild (1-3) Anxiety: Severe (7-10) Feelings of wellbeing/Perceived Quality of Life: Fair, Worsening Sleep: Variable sleep pattern Constipation: No Performance Status: Patient continues to deteriorate functionally, is mostly bedbound. She is incontinent of urine so wears depends. Does feel overwhelming to be able to get patient out of home, did agree in the context of wound care, was able to provide, does not need to follow-up with appointment tomorrow. Has been not able to help her, given his frailty. Concern regarding patient's increasing care needs, and how best to meet. Patient would most likely benefit from hospital bed. - Palliative Care Discussion: Patient with high anxiety, did navigate conversation regarding goals of care in the context of this. She often interrupts I want to "stay positive". But teased out the patient wants to "stay here as long as I can stay", but important to spend time with family, and would prefer to be at home. We discussed in the context of her acute illness, if she were to continue to have events most likely would in the hospital. This is really not what she wants for the bigger picture, nor does her family. Did introduce hospice as a layer of support, with the goal to focus on comfort, living to each day. They are awaiting outcome of [facility] appointment tomorrow, to "pursue all avenues", though given patient's rapid functional and worsening cognitive decline most likely is not going to be a candidate. She very much would like her pain control better, as well as her anxiety addressed. Did introduce the POLST, did agree in the context of her believes, that if it was her time, DNA R/D and I was appropriate. We did fredy selective treatments, given at this point time has not made the decision to transition to comfort only. Did meet with Diana, she has had a significant amount of loss, her father last year, [id number] last week, and this is been a fairly rapid journey with recurrence of her mom's disease. She very much would like to try and support her at home, she herself though works full-time at [employer]. She reports her mother has often deferred, and had difficulty managing anxiety regarding her treatment. She does understand how ill her mom is, is feeling quite supported by her mother's sisters. She will follow up with family, and is leaning towards hospice support. She is quite familiar with this as she has had experience at [facility]. She does want to support her mother's wishes, but also would like to be with her for end-of-life, and feels hospitalization would most likely be leading to an end-of-life event.Did provide a DPOA form, given patient's expressed wishes to have Diana be her decision maker in the context of her 's frail health.She will get this completed. Impression and Recommendations - Palliative Care Impression: This is a 74-year-old woman with relapsed diffuse B-cell lymphoma, w ith recent acute hospitalization for GI bleed with diagnosis of atypical gastric ulcers most likely indicative of metastatic disease, sepsis, atrial fib with RVR, chronic heart failure, now presenting with acute functional decline and worsening cognitive status. She does present with high symptom burden of uncontrolled pain, escalating anxiety, and severe fatigue. Palliative care making urgent visit, for pain control, goals of care, and anticipatory guidance as well as coordination of care. Recommendations/Counseling Done: 1. Pain of neoplastic origin. Patient has 8 out of 10 severity of pain, moderate relief with hydrocodone, complex social situation to support aggressive pain management. We will go ahead and initiate fentanyl 12 mcg patch, with goal to increase slowly. Counseling provided regarding the role of long-acting fentanyl supported with short acting hydrocodone, instructed to use for breakthrough pain and to track diligently to be able to titrate appropriately. Patient's pain is central back wideband of thoracic across hold of rib cage. 2. Anxiety. Patient has had recurrent anxiety attacks and worsening anxiety with recent rapid decline. Patient has been prescribed hydroxyzine, suspect this is not been effective given evaluation. We will go ahead as patient would like to be present with family, to order alprazolam 0.5 mg 1 tab every 6 hours as needed, will titrate to effect. 3. Relapsed diffuse B-cell lymphoma. Patient currently with rapid declining functional status, suspect will not be a candidate for any treatment. Counseling provided regarding often supportive care, extends both quality and quantity of life in the setting of aggressive disease, as patient wants to stay "positive". They do feel they need to explore all options, will be looking at [facility] to see if has any options. Will await outcome of this appointment, in the context of either home health referral or hospice referral. 4. Gastric ulcers, most likely attributed metastatic disease. Patient is quite anorexic, has decreased intake, did receive fluids yesterday in the ED. Denies any abdominal pain, though does report dark stools but improving. Is on appropriate medication to manage, will continue to monitor. Did diet counselor with daughter, high risk for sequela of recurrent bleeding. 5. Right axillary wound. Dressing removed flushed with normal saline, packed lightly with gauze, covered with Mepilex. Does not appear to have any necrotic or worsening features, most likely benefited from antibiotic coverage and hospital. Will need long-term plan for wound care, whether that is home health versus hospice. Supplies left and instructions given to daughter in case delay of services. 6. Advanced care planning. Counseling provided regarding goals of care, teasing out patient's priorities. It is spending time with family, her relationship with God, but is definitely overwhelmed with the sequela and series of unfortunate events. Given patient's high risk for recurrent bleed, or complications, did pursue and complete POLST with [facility]. Patient would like Diana to be her DPOA, forms given, she will complete. Counseling provided regarding the continuum of care, including the role of hospice and hospice benefit. Diana is quite familiar, patient and family to discuss direction, will alert hospice team and home health as it is going to be Friday afternoon before final decision is made. Looking at prognostic indicators, regarding palliative care performance status she is rates 30%. Worst case patient scenario is to live 12 days, most likely case live 22 days, best case 102 days. The PPS has been shown to be both valid and useful for broad range of palliative care patients, particularly those with advanced cancer diagnosis. We will complete [id number] in case transitions to home health. [id number]. Is a taxing considerable effort for the patient to leave the home, she is mostly bedbound secondary to pain and declining functional status. Home health RN to provide wound care to right axilla, home health aide for bathing, and SOCIAL INSURANCE SPECIALIST for counseling for adjustment illness and long-term/short-term planning. Time Spent: 75 minutes with greater than 50% of this done in counseling regarding goals of care, pain management, management of anxiety, coordination of care with home health/hospice, and anticipatory guidance.
== END 2020-01-27 16:01 | disposition home or self-care (01) ==
LOC: PC 16:00
PROVIDERS: ATTEND Nurse Practitioner Adult Health
DX: Z51.5 Encounter for palliative care (principal); G89.3 Neoplasm related pain (acute) (chronic); C83.30 Diffuse large B-cell lymphoma, unspecified site; F41.9 Anxiety disorder, unspecified; K25.4 Chronic or unspecified gastric ulcer with hemorrhage; S41.101D Unspecified open wound of right upper arm, subsequent encounter; I11.0 Hypertensive heart disease with heart failure; I50.9 Heart failure, unspecified; I48.91 Unspecified atrial fibrillation; I35.0 Nonrheumatic aortic (valve) stenosis; I82.403 Acute embolism and thrombosis of unspecified deep veins of lower extremity, bilateral; R32 Unspecified urinary incontinence; Z79.899 Other long term (current) drug therapy; Z79.891 Long term (current) use of opiate analgesic; Z79.01 Long term (current) use of anticoagulants; Z74.01 Bed confinement status; Z66 Do not resuscitate
CPT/HCPCS: 99345